=== PATIENT | male | born 1940 | race Caucasian/White ===

== ENCOUNTER 2020-02-02 10:49 | Inpatient (IN) | payer MEDICARE ==
[~2020-02-02] VITALS: Ht 175.3 cm; Wt 90.0 kg
--- NOTE | 2020-02-02 11:08 | RAD ---
AP chest x-ray HISTORY: Right-sided weakness, code stroke. FINDINGS: Borderline cardiomegaly. Mediastinum unremarkable. No pneumothorax, pulmonary opacities or pleural effusions. Mild discoid atelectasis lung bases. Bones unremarkable. IMPRESSION: No acute process. Mild bibasilar atelectasis. Electronically signed by: Krish Eldridge MD (02/02/2020 11:05 AM) [id number]
--- NOTE | 2020-02-02 11:11 | RAD ---
CT head without contrast Exposure: One or more of the following individualized dose reduction techniques were utilized for this examination: 1. Automated exposure control 2. Adjustment of the mA and/or kV according to patient size 3. Use of iterative reconstruction technique History: Code stroke. Right-sided weakness. Speech changes. FINDINGS: No intracranial hemorrhage, mass, hydrocephalus or infarction. No acute ischemic change evident. Orbits, mastoids and bones are unremarkable. IMPRESSION: No acute abnormality. FOR INTERNAL CODING PURPOSES Critical result: Findings discussed with LYN ROSE at 02/02/2020 11:05 AM. RESULT CODE: (C) Electronically signed by: Krish Eldridge MD (02/02/2020 11:08 AM) [id number]
[2020-02-02 11:19] LABS: BASO # 0.1 x10^3/uL (0.0-0.2); BASO % 1 % (0-3); EOS # 0.1 x10^3/uL (0.0-0.7); EOS % 2 % (0-3); HEMOGLOBIN 14.5 g/dL (13.0-17.5); LYMPH % 26 % (24-48); MEAN CORPUSCULAR HEMOGLOBIN 33 pg (25-35); MEAN CORPUSCULAR HGB CONC 34 g/dL (31-37); MEAN CORPUSCULAR VOLUME 98 fL (79-100); MONO # 0.6 x10^3/uL (0.0-1.1); MONO % 8 % (0-9); NEUT # 4.7 x10^3/uL (1.8-7.7); NEUT % 62 % (31-73); PLATELET COUNT 252 x10^3/uL (140-400); RED BLOOD COUNT 4.39 x10^6/uL (4.30-5.70); WHITE BLOOD COUNT 7.6 x10^3/uL (4.0-11.0)
--- NOTE | 2020-02-02 11:21 | RAD ---
CT angiography head and neck with contrast Stenosis calculations for CT, MR, and conventional angiography are based upon measurements of the distal ICA diameter in accordance with the NASCET methodology. Stenosis calculations for carotid ultrasound studies are derived from validated velocity criteria which are known to correlate with the NASCET methodology. PQRS statement: CT scans at this facility use dose reduction including either automated exposure control, iterative reconstructions, and /or weight based radiation dosing via mA and kV modification when appropriate to reduce radiation dose to as low as reasonably achievable. Technique: CT imaging head and neck with 75 mL of opaque 350 intravenous contrast with 3-D MIP reconstructions of the arteries acquired. CTA neck: Mild plaquing of the ostia the vessels from the aortic arch without stenosis. Tortuosity of the vessels at the thoracic inlet. Left vertebral artery is dominant. No plaquing, dissection, thrombus, stenosis or occlusion the vertebral arteries. Left carotid artery demonstrates partially calcified plaque at the bifurcation contributing to 10 percent stenosis. No dissection, thrombus or occlusion. Right carotid artery demonstrates partially calcified plaque at the bifurcation contributing to 40 percent stenosis at the termination of the common carotid and origin of the internal carotid artery. No dissection, thrombus or occlusion. Cervical disc osteophytes and uncovertebral spurs with spinal canal and neural foraminal stenoses. CT head findings: Mild calcified plaque cavernous carotid arteries without stenosis. No large vessel occlusion. No thrombus, significant stenosis, occlusion or aneurysm. Patent left posterior indicating artery. Patent anterior to indicating artery. Right anterior cerebral artery A1 segment is hypoplastic. IMPRESSION: 1. No large vessel occlusion. 2. Cervical carotid artery plaquing without significant stenosis. FOR INTERNAL CODING PURPOSES Critical result: Findings discussed with LYN ROSE at 02/02/2020 11:08 AM. RESULT CODE: (C) Electronically signed by: Krish Eldridge MD (02/02/2020 11:18 AM) [id number]
[2020-02-02 11:30] LABS: CREATININE 1.7 mg/dL (0.7-1.3); POTASSIUM 4.9 mmol/L (3.5-5.1)
[2020-02-02] MEDS ORDERED: ALTEPLASE IV SCH (11:30)
[2020-02-02] MEDS ORDERED: ALTEPLASE 0 MG IV SCH (11:30)
[2020-02-02] MEDS ORDERED: ALTEPLASE 8.5 MG IV ONE (11:30)
[2020-02-02] MEDS ORDERED: LABETALOL 20 MG/4 ML DISP.SYRIN. IVP PRN (11:30)
[2020-02-02] MEDS ORDERED: IV NORMAL SALINE 50ML 50 ML IV ONE ×2 (11:30)
[2020-02-02 11:34] LABS: PROTHROMBIN TIME PATIENT 14.3 SEC (11.7-14.0)
[2020-02-02 11:36] LABS: TOTAL BILIRUBIN 0.4 mg/dL (0.2-1.0); TOTAL PROTEIN 5.9 g/dL (6.4-8.2)
--- NOTE | 2020-02-02 11:56 | PDOC1 ---
History and Physical Date of Admission Date of Admission DATE: 02/02/20 TIME: 11:51 Identification/Chief Complaint Chief Complaint Garbled speech, right arm and leg weakness Source Source: Caregiver, Chart review, Patient History of Present Illness History of Present Illness Mr Hamm is an 79 yo M w/ PMHx COPD, CAD s/p x2 MIRLANDE (10+ years) on plavix, renal mass s/p RFA, chronic systolic CHF (EF 40%), HTN, BPH, and HLD who presents to the ED brought in by EMS as a code stroke activation, last known well around 1015 AM this morning. EMS reports patient was picked up at a nearby liquor store with sudden onset slurred speech and right-sided weakness- witnessed event/pt slumped to right side, not fall or hit his head. EMS reported patient had right-sided flaccidity and aphasia with left lower facial droop. Glucose within normal limits. On no anticoagulants. EKG with NSR 65 bpm, left axis deviation, QTC 465, [place] 206, first-degree AV block, left bundle branch block present, T wave inversions V4 through V6, 1, 2 and aVL, no prior EKG for comparison CXR with borderline cardiomegaly no acute abnormalities. CT head with no acute hemorrhage. CT angiogram head and neck with bilateral carotid plaques no thrombi noted. Labs significant for WBC 7.6, Hb 14.5, platelets 252, INR 1.2, PTT 28, calcium 8, NA 138, K4.9, BUN 31, CR 1.7, glucose 102. NIHSS 6 on admit with ED. Contacted by ED for admission and we discussed with neurology, no absolute contraindications to tPA, which was administered with improvement in symptoms to NIHSS of 1 upon my evaluation. Seen in ED bedside with his and [id number] (he and his are from [facility] in town visiting his son and [id number] who are the owners of a liquor store where this incident occurred.) His and [id number] note that at baseline he does have some occasional word-finding difficulty. Admitted to ICU for post-tPA care. Past Medical History Cardiovascular: CAD, CHF, HTN, Hyperlipidemia Pulmonary: COPD Renal/: Benign prostatic enlarg. Past Surgical History Past Surgical History: Cystoscopy Family History Family History: Cancer, High Cholestrol, Hypertension Social History Smoke: Quit ALCOHOL: occassional Drugs: None Current Medications Current Medications Current Medications Alteplase, Recombinant 8.5 ml @ 510 mls/hr 1X ONCE IV ; Start 02/02/20 at 11:30; Stop 02/02/20 at 11:31; Status DC Alteplase, Recombinant 76.8 ml @ 76.8 mls/hr Q1H IV ; Start 02/02/20 at 11:30; Stop 02/02/20 at 12:29 Sodium Chloride 50 ml @ 200 mls/hr 1X ONCE IV ; Start 02/02/20 at 11:30; Stop 02/02/20 at 11:44; Status DC Alteplase, Recombinant 0 ml @ 0 mls/hr Q1H IV ; Start 02/02/20 at 11:30; Stop 02/02/20 at 11:31; Status UNV Sodium Chloride 50 ml @ 0 mls/hr 1X ONCE IV ; Start 02/02/20 at 11:30; Stop 02/02/20 at 11:32; Status DC Labetalol HCl (Normodyne Iv Push) 10 mg PRN Q10MIN PRN IVP HYPERTENSION; Start 02/02/20 at 11:30 Nicardipine HCl 50 mg/Sodium Chloride 250 ml @ 25 mls/hr CONT PRN PRN IV HYPERTENSION; Start 02/02/20 at 11:30 Allergies Allergies: Coded Allergies: No Known Drug Allergies (Unverified , 02/02/20) ROS General: YES: Fatigue, Malaise; No: Chills, Night Sweats, Appetite, Other PSYCHOLOGICAL ROS: No: Anxiety, Behavioral Disorder, Concentration difficultie, Decreased libido, Depression, Disorientation, Hallucinations, Hostility, Irritablity, Memory difficulties, Mood Swings, Obsessive thoughts, Physical abuse, Sexual abuse, Sleep disturbances, Suicidal ideation, Other Eyes: No Blurry vision, No Decreased vision, No Double vision, No Dry eyes, No Excessive tearing, No Eye Pain, No Itchy Eyes, No Loss of vision, No Photophobia, No Scotomata, No Uses contacts, No Uses glasses, No Other HEENT: No: Heacaches, Visual Changes, Hearing change, Nasal congestion, Nasal discharge, Oral lesions, Sinus pain, Sore Throat, Epistaxis, Sneezing, Snoring, Tinnitus, Vertigo, Vocal changes, Other ALLERGY AND IMMUNOLOGY: No: Hives, Insect Bite Sensitivity, Itchy/Watery Eyes, Nasal Congestion, Post Nasal Drip, Seasonal Allergies, Other Hematological and Lymphatic: No: Bleeding Problems, Blood Clots, Blood Transfusions, Brusing, Night Sweats, Pallor, Swollen Lymph Nodes, Other ENDOCRINE: No: Breast Changes, Galactorrhea, Hair Pattern Changes, Hot Flashes, Malaise/lethargy, Mood Swings, Palpitations, Polydipsia/polyuria, Skin Changes, Temperature Intolerance, Unexpected Weight Changes, Other Breast: No New/Changing Breast Lumps, No Nipple changes, No Nipple discharge, No Other Respiratory: No: Cough, Hemoptysis, Orthopnea, Pleuritic Pain, Shortness of breath, SOB with excertion, Sputum Changes, Stridor, Tachypnea, Wheezing, Other Cardiovascular: No Chest Pain, No Palpitations, No Orthopnea, No Paroxysmal Noc. Dyspnea, No Edema, No Lt Headedness, No Other Gastrointestinal: No Nausea, No Vomiting, No Abdominal Pain, No Diarrhea, No Constipation, No Melena, No Hematochezia, No Other Genitourinary: No Dysuria, No Frequency, No Incontinence, No Hematuria, No Retention, No Discharge, No Urgency, No Pain, No Flank Pain, No Other, No , No , No , No , No , No , No Musculoskeletal: No Gait Disturbance, No Joint Pain, No Joint Stiffness, No Joint Swelling, No Muscle Pain, No Muscular Weakness, No Pain In:, No Swelling In:, No Other Neurological: Yes Memory Loss, Yes Speech Problems; No Behavorial Changes, No Bowel/Bladder ControlChng, No Confusion, No Dizziness, No Gait Disturbance, No Headaches, No Impaired Coord/balance, No Numbness/Tingling, No Seizures, No Tremors, No Visual Changes, No Weakness, No Other Skin: No Dry Skin, No Eczema, No Hair Changes, No Lumps, No Mole Changes, No Mottling, No Nail Changes, No Pruritus, No Rash, No Skin Lesion Changes, No Other, No Acne Physical Exam General: Alert, Oriented X3, Cooperative, No acute distress HEENT: Atraumatic, PERRLA, EOMI, Mucous membr. moist/pink Lungs: Other (Scattered wheezes) Heart: S1S2, RRR, no thrills, no rubs, no gallops, no murmurs Abdomen: Normal bowel sounds, Soft, No tenderness, No hepatosplenomegaly, No ma sses Rectal Exam: not examined Extremities: No clubbing, No cyanosis, No edema, Normal pulses, No tenderness/swelling Skin: No rashes, No breakdown, No significant lesion Neuro: Normal gait, Normal speech, Strength at 5/5 X4 ext, Normal tone, Sensation intact, Cranial nerves 3-12 NL, Reflexes 2+ Psych/Mental Status: Mental status NL, Mood NL Labs Labs Laboratory Tests Test 02/02/20 11:07 White Blood Count 7.6 x10^3/uL (4.0-11.0) Red Blood Count 4.39 x10^6/uL (4.30-5.70) Hemoglobin 14.5 g/dL (13.0-17.5) Hematocrit 43.0 % (39.0-53.0) Mean Corpuscular Volume 98 fL (79-100) Mean Corpuscular Hemoglobin 33 pg (25-35) Mean Corpuscular Hemoglobin Concent 34 g/dL (31-37) Red Cell Distribution Width 14.0 % (11.5-14.5) Platelet Count 252 x10^3/uL (140-400) Neutrophils (%) (Auto) 62 % (31-73) Lymphocytes (%) (Auto) 26 % (24-48) Monocytes (%) (Auto) 8 % (0-9) Eosinophils (%) (Auto) 2 % (0-3) Basophils (%) (Auto) 1 % (0-3) Neutrophils # (Auto) 4.7 x10^3/uL (1.8-7.7) Lymphocytes # (Auto) 2.0 x10^3/uL (1.0-4.8) Monocytes # (Auto) 0.6 x10^3/uL (0.0-1.1) Eosinophils # (Auto) 0.1 x10^3/uL (0.0-0.7) Basophils # (Auto) 0.1 x10^3/uL (0.0-0.2) Prothrombin Time 14.3 SEC (11.7-14.0) Prothromb Time International Ratio 1.2 (0.8-1.1) Activated Partial Thromboplast Time 28 SEC (24-38) Sodium Level 138 mmol/L (136-145) Potassium Level 4.9 mmol/L (3.5-5.1) Chloride Level 106 mmol/L (98-107) Carbon Dioxide Level 21 mmol/L (21-32) Anion Gap 11 (6-14) Blood Urea Nitrogen 31 mg/dL (8-26) Creatinine 1.7 mg/dL (0.7-1.3) Estimated GFR (Cockcroft-Gault) 39.0 BUN/Creatinine Ratio 18 (6-20) Glucose Level 102 mg/dL (70-99) Calcium Level 8.0 mg/dL (8.5-10.1) Total Bilirubin 0.4 mg/dL (0.2-1.0) Aspartate Amino Transf (AST/SGOT) 12 U/L (15-37) Alanine Aminotransferase (ALT/SGPT) 14 U/L (16-63) Alkaline Phosphatase 46 U/L (46-116) Troponin I Quantitative < 0.017 ng/mL (0.000-0.055) Total Protein 5.9 g/dL (6.4-8.2) Albumin 3.0 g/dL (3.4-5.0) Albumin/Globulin Ratio 1.0 (1.0-1.7) Ethyl Alcohol Level < 10 mg/dL (0-10) Laboratory Tests Test 02/02/20 11:07 White Blood Count 7.6 x10^3/uL (4.0-11.0) Red Blood Count 4.39 x10^6/uL (4.30-5.70) Hemoglobin 14.5 g/dL (13.0-17.5) Hematocrit 43.0 % (39.0-53.0) Mean Corpuscular Volume 98 fL (79-100) Mean Corpuscular Hemoglobin 33 pg (25-35) Mean Corpuscular Hemoglobin Concent 34 g/dL (31-37) Red Cell Distribution Width 14.0 % (11.5-14.5) Platelet Count 252 x10^3/uL (140-400) Neutrophils (%) (Auto) 62 % (31-73) Lymphocytes (%) (Auto) 26 % (24-48) Monocytes (%) (Auto) 8 % (0-9) Eosinophils (%) (Auto) 2 % (0-3) Basophils (%) (Auto) 1 % (0-3) Neutrophils # (Auto) 4.7 x10^3/uL (1.8-7.7) Lymphocytes # (Auto) 2.0 x10^3/uL (1.0-4.8) Monocytes # (Auto) 0.6 x10^3/uL (0.0-1.1) Eosinophils # (Auto) 0.1 x10^3/uL (0.0-0.7) Basophils # (Auto) 0.1 x10^3/uL (0.0-0.2) Prothrombin Time 14.3 SEC (11.7-14.0) Prothromb Time International Ratio 1.2 (0.8-1.1) Activated Partial Thromboplast Time 28 SEC (24-38) Sodium Level 138 mmol/L (136-145) Potassium Level 4.9 mmol/L (3.5-5.1) Chloride Level 106 mmol/L (98-107) Carbon Dioxide Level 21 mmol/L (21-32) Anion Gap 11 (6-14) Blood Urea Nitrogen 31 mg/dL (8-26) Creatinine 1.7 mg/dL (0.7-1.3) Estimated GFR (Cockcroft-Gault) 39.0 BUN/Creatinine Ratio 18 (6-20) Glucose Level 102 mg/dL (70-99) Calcium Level 8.0 mg/dL (8.5-10.1) Total Bilirubin 0.4 mg/dL (0.2-1.0) Aspartate Amino Transf (AST/SGOT) 12 U/L (15-37) Alanine Aminotransferase (ALT/SGPT) 14 U/L (16-63) Alkaline Phosphatase 46 U/L (46-116) Troponin I Quantitative < 0.017 ng/mL (0.000-0.055) Total Protein 5.9 g/dL (6.4-8.2) Albumin 3.0 g/dL (3.4-5.0) Albumin/Globulin Ratio 1.0 (1.0-1.7) Ethyl Alcohol Level < 10 mg/dL (0-10) Images Images CXR: Borderline cardiomegaly. Mediastinum unremarkable. No pneumothorax, pulmonary opacities or pleural effusions. Mild discoid atelectasis lung bases. Bones unremarkable. IMPRESSION: No acute process. Mild bibasilar atelectasis. CT Head: No intracranial hemorrhage, mass, hydrocephalus or infarction. No acute ischemic change evident. Orbits, mastoids and bones are unremarkable. IMPRESSION: No acute abnormality CTA neck: Mild plaquing of the ostia the vessels from the aortic arch without stenosis. Tortuosity of the vessels at the thoracic inlet. Left vertebral artery is dominant. No plaquing, dissection, thrombus, stenosis or occlusion the vertebral arteries. Left carotid artery demonstrates partially calcified plaque at the bifurcation contributing to 10 percent stenosis. No dissection, thrombus or occlusion. Right carotid artery demonstrates partially calcified plaque at the bifurcation contributing to 40 percent stenosis at the termination of the common carotid and origin of the internal carotid artery. No dissection, thrombus or occlusion. Cervical disc osteophytes and uncovertebral spurs with spinal canal and neural foraminal stenoses. CT head findings: Mild calcified plaque cavernous carotid arteries without stenosis. No large vessel occlusion. No thrombus, significant stenosis, occlusion or aneurysm. Patent left posterior indicating artery. Patent anterior to indicating artery. Right anterior cerebral artery A1 segment is hypoplastic. IMPRESSION: 1. No large vessel occlusion. 2. Cervical carotid artery plaquing without significant stenosis. VTE Prophylaxis Ordered VTE Prophylaxis Devices: Yes VTE Pharmacological Prophylaxi: Yes Assessment/Plan Assessment/Plan A/P: Aphasia (Broca's) - has baseline some word finding difficulty, but vastly improved since initial evaluation. Likely prevented early CVA. Neuro consulted Right sided weakness - Resolved s/p tPA CAD s/p x2 MIRLANDE (10+ years) - on plavix. Follows in [place], [place]. Hold antiplatelets after tPA administration. Will reconcile his other meds Chronic systolic CHF (EF 40%) - stable currently, seems euvolemic, will obtain [facility] records HTN - PRN nicardipine/labetalol for SBP < 180mmHg HLD - statin BPH - flomax COPD - prn albuterol Renal mass s/p RFA - will f/u with records SUSIE - baseline Cr unknown, no significant renal disease FEN - NPO pending swallow evaluation PPX - TPA given CODE - DNR/DNI Dispo - inpatient ICU CC time 49 minutes Justifications for Admission Other Justification SCOTT LEACH MD Feb 02, 2020 11:56
[2020-02-02] MEDS ORDERED: IOHEXOL 350 MG/ML 100 ML VIAL. IV ONE (12:30)
[2020-02-02] MEDS ORDERED: CONTRAST GIVEN. MC PRN (12:30)
--- NOTE | 2020-02-02 13:15 | PHYS DOC ---
General Adult EDM: Chief Complaint: NEURO SYMPTOMS/DEFICITS HPI: HPI: 79 yo M PMH CAD on plavix, HTN and HLD, presents to the ED brought in by EMS as a code stroke activation, last known well around 10:15 AM this morning. EMS reports patient was picked up at a nearby grocery store with sudden onset slurred speech and right-sided weakness- witnessed event/pt slumped to right side, not fall or hit his head. EMS reported patient had right-sided flaccidity and aphasia with left lower facial droop. Glucose within normal limits. On no anticoagulants. Review of Systems: Review of Systems: ROS: Unable to assess due to medical condition Heart Score: Risk Factors: Risk Factors: DM, Current or recent (<one month) smoker, HTN, HLP, family history of CAD, obesity. Risk Scores: Score 0 - 3: 2.5% MACE over next 6 weeks - Discharge Home Score 4 - 6: 20.3% MACE over next 6 weeks - Admit for Clinical Observation Score 7 - 10: 72.7% MACE over next 6 weeks - Early Invasive Strategies Current Medications: Current Medications Medications (Trade) Dose Ordered Sig/Ivana Start Time Stop Time Status Last Admin Dose Admin Alteplase, Recombinant 0 ml @ 0 mls/hr Q1H 02/02/20 11:30 02/02/20 11:31 UNV Info (CONTRAST GIVEN -- Rx MONITORING) 1 each PRN DAILY PRN 02/02/20 12:30 02/04/20 12:29 Iohexol (Omnipaque 350 Mg/ml) 75 ml 1X ONCE 02/02/20 12:30 02/02/20 12:31 DC Labetalol HCl (Normodyne Iv Push) 10 mg PRN Q10MIN PRN 02/02/20 11:30 Nicardipine HCl 50 mg/Sodium Chloride 250 ml @ 25 mls/hr CONT PRN PRN 02/02/20 11:30 Sodium Chloride 50 ml @ 0 mls/hr 1X ONCE 02/02/20 11:30 02/02/20 11:32 DC Allergies: Allergies: Allergies Coded Allergies Type Severity Reaction Last Updated Verified No Known Drug Allergies 02/02/20 No Physical Exam: PE: Constitutional: Well developed, well nourished, HENT: Normocephalic, atraumatic, Eyes: PERRLA, EOMI, conjunctiva normal, no discharge. Neck: Normal range of motion, no tenderness, Cardiovascular:Heart rate regular rhythm, no murmur Lungs & Thorax: Bilateral breath sounds clear to auscultation Abdomen: Bowel sounds normal, obese, 10cm ventral hernia easily reduced, soft, no tenderness, no masses, no pulsatile masses. Skin: Warm, dry, no erythema, no rash. Extremities: No tenderness, no edema. Neurologic: NIHSS6, Alert, unable to say 's name, is trying to write it, stated "my girl," but intermittently with slurred/incomprehensible and inappropriate words, cannot identify a pen or mask) Psychologic: Affect normal, judgement normal, mood normal. [] 1a. Level of Consciousness: 0 1b. LOC Questions:2 1c. LOC Commands: 0 2. Best Gaze: 0 3. Visual: 0 4. Facial Palsy: 1 5. Motor Arm: 0 5b. Right Arm :0 6. Motor Le 6a. Left Le 6b. Right Le 7. Limb Ataxia: 0 8. Sensory: 0 9. Best Language: 2 10. Dysarthria: 1 11. Extinction and Inattention (formerly Neglect): 0 Current Patient Data: Labs: Laboratory Tests Test 02/02/20 11:07 White Blood Count 7.6 x10^3/uL (4.0-11.0) Red Blood Count 4.39 x10^6/uL (4.30-5.70) Hemoglobin 14.5 g/dL (13.0-17.5) Hematocrit 43.0 % (39.0-53.0) Mean Corpuscular Volume 98 fL (79-100) Mean Corpuscular Hemoglobin 33 pg (25-35) Mean Corpuscular Hemoglobin Concent 34 g/dL (31-37) Red Cell Distribution Width 14.0 % (11.5-14.5) Platelet Count 252 x10^3/uL (140-400) Neutrophils (%) (Auto) 62 % (31-73) Lymphocytes (%) (Auto) 26 % (24-48) Monocytes (%) (Auto) 8 % (0-9) Eosinophils (%) (Auto) 2 % (0-3) Basophils (%) (Auto) 1 % (0-3) Neutrophils # (Auto) 4.7 x10^3/uL (1.8-7.7) Lymphocytes # (Auto) 2.0 x10^3/uL (1.0-4.8) Monocytes # (Auto) 0.6 x10^3/uL (0.0-1.1) Eosinophils # (Auto) 0.1 x10^3/uL (0.0-0.7) Basophils # (Auto) 0.1 x10^3/uL (0.0-0.2) Prothrombin Time 14.3 SEC (11.7-14.0) H Prothrombin Time INR 1.2 (0.8-1.1) H Activated Partial Thromboplast Time 28 SEC (24-38) Sodium Level 138 mmol/L (136-145) Potassium Level 4.9 mmol/L (3.5-5.1) Chloride Level 106 mmol/L (98-107) Carbon Dioxide Level 21 mmol/L (21-32) Anion Gap 11 (6-14) Blood Urea Nitrogen 31 mg/dL (8-26) H Creatinine 1.7 mg/dL (0.7-1.3) H Estimated GFR (Cockcroft-Gault) 39.0 BUN/Creatinine Ratio 18 (6-20) Glucose Level 102 mg/dL (70-99) H Calcium Level 8.0 mg/dL (8.5-10.1) L Total Bilirubin 0.4 mg/dL (0.2-1.0) Aspartate Amino Transferase (AST) 12 U/L (15-37) L Alanine Aminotransferase (ALT) 14 U/L (16-63) L Alkaline Phosphatase 46 U/L (46-116) Troponin I Quantitative < 0.017 ng/mL (0.000-0.055) Total Protein 5.9 g/dL (6.4-8.2) L Albumin 3.0 g/dL (3.4-5.0) L Albumin/Globulin Ratio 1.0 (1.0-1.7) Ethyl Alcohol Level < 10 mg/dL (0-10) Laboratory Tests 02/02/20 11:07 Laboratory Tests 02/02/20 11:07 EKG: EKG: Sinus rhythm at 65 bpm, left axis deviation, QTC 465, IL 206, first-degree AV block, left bundle branch block present, T wave inversions V4 through V6, 1, 2 and aVL, no prior EKG for comparison Radiology/Procedures: Radiology/Procedures: IMAGING REPORT Signed PATIENT: CARLOTA BALTAZAR ACCOUNT: [id number] : 1940 LOCATION: ER AGE: 79 SEX: M EXAM STATUS: PRE ER ORD. PHYSICIAN: LEATHA ROSE DO REASON: right weakness and speech changes PROCEDURE: CT CODE STROKE HEAD WO CT head without contrast Exposure: One or more of the following individualized dose reduction techniques were utilized for this examination: 1. Automated exposure control 2. Adjustment of the mA and/or kV according to patient size 3. Use of iterative reconstruction technique History: Code stroke. Right-sided weakness. Speech changes. FINDINGS: No intracranial hemorrhage, mass, hydrocephalus or infarction. No acute ischemic change evident. Orbits, mastoids and bones are unremarkable. IMPRESSION: No acute abnormality. FOR INTERNAL CODING PURPOSES Critical result: Findings discussed with LEATHA ROSE at 02/02/2020 11:05 AM. RESULT CODE: (C) Electronically signed by: Antonio Eldridge MD (02/02/2020 11:08 AM) [id number] DICTATED and SIGNED BY: ANTONIO ELDRIDGE MD DATE: 02/02/201107 IMAGING REPORT Signed PATIENT: CARLOTA BALTAZAR ACCOUNT: [id number] : 1940 LOCATION: ER AGE: 79 SEX: M EXAM STATUS: REG ER ORD. PHYSICIAN: LEATHA ROSE DO REASON: right weakness and speech changes IV OMNI 350 75 MLS PROCEDURE: CTA HEAD/NECK - CODE STROKE CT angiography head and neck with contrast Stenosis calculations for CT, MR, and conventional angiography are based upon measurements of the distal ICA diameter in accordance with the NASCET methodology. Stenosis calculations for carotid ultrasound studies are derived from validated velocity criteria which are known to correlate with the NASCET methodology. PQRS statement: CT scans at this facility use dose reduction including either automated exposure control, iterative reconstructions, and /or weight based radiation dosing via mA and kV modification when appropriate to reduce radiation dose to as low as reasonably achievable. Technique: CT imaging head and neck with 75 mL of opaque 350 intravenous contrast with 3-D MIP reconstructions of the arteries acquired. CTA neck: Mild plaquing of the ostia the vessels from the aortic arch without stenosis. Tortuosity of the vessels at the thoracic inlet. Left vertebral artery is dominant. No plaquing, dissection, thrombus, stenosis or occlusion the vertebral arteries. Left carotid artery demonstrates partially calcified plaque at the bifurcation contributing to 10 percent stenosis. No dissection, thrombus or occlusion. Right carotid artery demonstrates partially calcified plaque at the bifurcation contributing to 40 percent stenosis at the termination of the common carotid and origin of the internal carotid artery. No dissection, thrombus or occlusion. Cervical disc osteophytes and uncovertebral spurs with spinal canal and neural foraminal stenoses. CT head findings: Mild calcified plaque cavernous carotid arteries without stenosis. No large vessel occlusion. No thrombus, significant stenosis, occlusion or aneurysm. Patent left posterior indicating artery. Patent anterior to indicating artery. Right anterior cerebral artery A1 segment is hypoplastic. IMPRESSION: 1. No large vessel occlusion. 2. Cervical carotid artery plaquing without significant stenosis. FOR INTERNAL CODING PURPOSES Critical result: Findings discussed with LEATHA ROSE at 02/02/2020 11:08 AM. RESULT CODE: (C) Electronically signed by: Antonio Eldridge MD (02/02/2020 11:18 AM) [id number] DICTATED and SIGNED BY: ANTONIO ELDRIDGE MD DATE: 02/02/20 1118 IMAGING REPORT Signed PATIENT: CARLOTA BALTAZAR ACCOUNT: [id number] : 1940 LOCATION: ER AGE: 79 SEX: M EXAM STATUS: PRE ER ORD. PHYSICIAN: LEATHA ROSE DO REASON: roight weak,CODE STROKE PROCEDURE: PORTABLE CHEST 1V AP chest x-ray HISTORY: Right-sided weakness, code stroke. FINDINGS: Borderline cardiomegaly. Mediastinum unremarkable. No pneumothorax, pulmonary opacities or pleural effusions. Mild discoid atelectasis lung bases. Bones unremarkable. IMPRESSION: No acute process. Mild bibasilar atelectasis. Electronically signed by: Antonio Eldridge MD (02/02/2020 11:05 AM) [id number] DICTATED and SIGNED BY: ANTONIO ELDRIDGE MD DATE: 02/02/205 Course & Med Decision Making: Course & Med Decision Making Pertinent Labs and Imaging studies reviewed. (See chart for details) Concern for ischemic CVA/sudden onset broca's aphasia and dysarthria. CT of the head with no hemorrhagic stroke. CTA of the head and neck with no large vessel occlusion. Patient within TPA timeframe and has no absolute contraindications. Consent eventually ( initially not comfortable and there was difficulty getting ahold of pts' son) obtained from patient's at bedside and patient's son Chidi/daughter Luly via speaker phone. Thorough explanation of TPA risks and benefits. Also d/w neurology, Dr. Nagy, who agrees with plan/management. On re-evaluation after tpa given, almost near-resolution of aphasia, some mild dysarthria, NIHSS1. Pt admitted to ICU. I have spoken with the patient and/or caregivers. I have explained the patient's condition, diagnosis and treatment plan based on the information available to me at this time. I have answered the patient's and/or caregivers questions and answered any concerns. The patient and/or caregivers have as good an understanding of the patient's diagnosis, condition and treatment plan as can be expected at this point. The patient has been stabilized within the ca pability of the emergency department. The patient will be transported for further care and management or will be moved to an observation or inpatient service. I have communicated with the staff or medical practitioner taking over this patient's care. Critical Care: Authorized and Performed by: Leatha Rose DO Total critical care time: approximately 90 minutes Due to a high probability of clinically significant, life threatening deterioration, the patient required my highest level of preparedness to intervene emergently and I personally spent this critical care time directly and personally managing the patient. This critical care time included obtaining a history; examining the patient; pulse oximetry; ventilator management if necessary; ordering and review of studies; arranging urgent treatment with development of a management plan; evaluation of patient's response to treatment; frequent reassessment; discussion with patient/family; and, discussions with other providers. This critical care time was performed to assess and manage the high probability of imminent, life-threatening deterioration that could result in multi-organ failure. It was exclusive of separately billable procedures and treating other patients and teaching time. Please see MDM section and the rest of the note for further information on patient assessment and treatment. Dragon Disclaimer: Dragon Disclaimer: This electronic medical record was generated, in whole or in part, using a voice recognition dictation system. Departure Departure Impression: Primary Impression: CVA (cerebral vascular accident) Additional Impression: Broca's aphasia Disposition: 09 ADMITTED INPT THIS HOSP Admitting Physician: CHERELLE (Dr. Killian) Condition: CRITICAL Referrals: UNKNOWN PCP NAME (PCP) LEATHA ROSE DO Feb 02, 2020 13:15
[2020-02-02 14:07] LABS: BARBITURATES NEG (NEG); BENZODIAZEPINES NEG (NEG); CANNABINOIDS NEG (NEG); COCAINE NEG (NEG); METHADONE NEG (NEG); OPIATES NEG (NEG); PHENCYCLIDINE NEG (NEG)
[2020-02-02 14:12] LABS: AMPHETAMINE/METHAMPHETAMINE NEG (NEG)
[2020-02-02] MEDS ORDERED: ALBUTEROL SULFATE 2.5 MG/3 ML NEBU. NEB PRN (15:45)
--- NOTE | 2020-02-02 17:28 | RAD ---
Clinical Indications: Cerebrovascular accident. Exam : Carotid Duplex with Grayscale Ultrasound and Spectral and Color Doppler Analysis: PQRS Compliance Statement - Stenosis calculations for CT, MR and conventional angiography are based upon measurement of the distal ICA diameter in accordance with the NASCET methodology. Stenosis calculations for carotid ultrasound studies are derived from validated velocity criteria which are known to correlate with the NASCET methodology. Comparison study: None available. Findings: The common, internal and external carotid arteries were examined by grayscale, color and spectral Doppler ultrasound. Moderate atherosclerotic calcifications identified in the bilateral carotid bulbs and the proximal internal carotid arteries. Flow in both vertebral arteries was antegrade and normal. The following are the velocities and ratios in the carotid arteries on both sides: RIGHT ICA PV: 63cm/sec RIGHT CCA PV: 77cm/sec RIGHT ICA ED: 19cm/sec RIGHT IC/CCPV: 0.9 RIGHT VERTEBRAL: antegrade flow RIGHT % STENOSIS: Less than 50 percent LEFT ICA PV: 71cm/sec LEFT CCA PV: 93cm/sec LEFT ICA ED: 17cm/sec LEFT IC/CCPV: 0.7 LEFT VERTEBRAL: antegrade flow LEFT % STENOSIS: Less than 50 percent <50% ICA Stenosis: PSV < 125cm/s (EDV < 40cm/s; SVR < 2.0) 50-69% ICA Stenosis: PSV < 125-229cm/s (EDV 40-99cm/s; SVR 2.0-3.9) >70% ICA Stenosis: PSV > 230cm/s (EDV >100cm/s; SVR >4.0) Impression: No evidence of hemodynamically significant stenosis. Electronically signed by: Bakari Michael MD (02/02/2020 5:26 PM) [id number]
[2020-02-02] MEDS ORDERED: SIMV20TA18 PO (17:33)
[2020-02-02] MEDS ORDERED: CARV6.2511 PO (17:33)
[2020-02-02] MEDS ORDERED: ONDANSETRON PF 4 MG/2 ML VIAL. IV PRN (18:45)
[2020-02-02] MEDS ORDERED: ACETAMINOPHEN 650 MG SUPP.RECT. PR PRN (18:45)
[2020-02-02] MEDS ORDERED: BISACODYL 10 MG SUPP.RECT. PR PRN (18:45)
--- NOTE | 2020-02-02 19:35 | PDOC2 ---
CONSULT Date of Consult Date of Consult DATE: 02/02/20 TIME: 19:33 Reason for Consult Reason for Consult: code CVA Identification/Chief Complaint Chief Complaint right side weakness History of Present Illness Reason for Visit: This patient is 79-year-old man with past medical history of multiple medical problems patient was brought into hospital as stroke activation. Patient had acute onset of symptoms at 10:15 patient was having numbness on his right side of the body. Patient was having right-sided weakness. Patient was having difficulty with gait balance. Patient had difficulty speaking. Patient denied any complaint of headache nausea or vomiting chest pain shortness of breath. Patient was within the window for IV t-PA. Patient had stroke scale 6 on presentation The scan done brain did not show any evidence of acute intracranial etiology no evidence of acute hemorrhage or mass. Changes noted for chronic small vessel ischemic disease. Past Medical History Cardiovascular: CAD, CHF, HTN, Hyperlipidemia Pulmonary: COPD Renal/: Benign prostatic enlarg. Past Surgical History Past Surgical History: Cystoscopy Family History Family History: Cancer, High Cholestrol, Hypertension Social History Quit ALCOHOL: occassional Drugs: None Current Problem List Problem List Problems Medical Problems: (1) Broca's aphasia Status: Acute (2) CVA (cerebral vascular accident) Status: Acute Current Medications Current Medications Current Medications Alteplase, Recombinant 8.5 ml @ 510 mls/hr 1X ONCE IV Last administered on 02/02/20at 11:51; Start 02/02/20 at 11:30; Stop 02/02/20 at 11:31; Status DC Alteplase, Recombinant 76.8 ml @ 76.8 mls/hr Q1H IV Last administered on 02/02/20at 11:50; Start 02/02/20 at 11:30; Stop 02/02/20 at 12:29; Status DC Sodium Chloride 50 ml @ 200 mls/hr 1X ONCE IV Last administered on 02/02/20at 11:52; Start 02/02/20 at 11:30; Stop 02/02/20 at 11:44; Status DC Alteplase, Recombinant 0 ml @ 0 mls/hr Q1H IV ; Start 02/02/20 at 11:30; Stop 02/02/20 at 11:31; Status UNV Sodium Chloride 50 ml @ 0 mls/hr 1X ONCE IV ; Start 02/02/20 at 11:30; Stop 02/02/20 at 11:32; Status DC Labetalol HCl (Normodyne Iv Push) 10 mg PRN Q10MIN PRN IVP HYPERTENSION; Start 02/02/20 at 11:30 Nicardipine HCl 50 mg/Sodium Chloride 250 ml @ 25 mls/hr CONT PRN PRN IV HYPERTENSION; Start 02/02/20 at 11:30 Iohexol (Omnipaque 350 Mg/ml) 75 ml 1X ONCE IV Last administered on 02/02/20at 12:30; Start 02/02/20 at 12:30; Stop 02/02/20 at 12:31; Status DC Info (CONTRAST GIVEN -- Rx MONITORING) 1 each PRN DAILY PRN MC SEE COMMENTS; Start 02/02/20 at 12:30; Stop 02/04/20 at 12:29 Albuterol Sulfate (Ventolin Neb Soln) 2.5 mg PRN Q4HRS PRN NEB SHORTNESS OF BREATH; Start 02/02/20 at 15:45 Ondansetron HCl (Zofran) 4 mg PRN Q4HRS PRN IV NAUSEA/VOMITING; Start 02/02/20 at 18:45 Acetaminophen (Tylenol Supp) 650 mg PRN Q4HRS PRN MI TEMP OVER 100.4F OR MILD PAIN; Start 02/02/20 at 18:45 Bisacodyl (Dulcolax Supp) 10 mg PRN DAILY PRN MI CONSTIPATION; Start 02/02/20 at 18:45 Active Scripts Active Reported Carvedilol (Carvedilol) 6.25 Mg Tablet 6.25 Mg PO BIDWMEALS Simvastatin 20 Mg Tablet 1 Tab PO QHS Allergies Allergies: Coded Allergies: No Known Drug Allergies (Unverified , 02/02/20) Physical Exam Physical Exam General no acute distress. HEENT: Normocephalic and atraumatic. NECK: Supple without bruit Respiratory: Clear to auscultation bilaterally Heart: Regular rate and rhythm, S1S2 normal NEUROLOGIC: Mental status Alert oriented. Cranial nerve equally reactive pupils, and intact extraocular movements. No facial asymmetry. dysarthria Palate elevates and tongue protrudes in midline. Reflexes are 1-2 with flexor plantar responses. Coordination no dysmetria Strength able to move all exts equally. Sensory exam is intact for light touch and pinprick more on left compared to right side. Gait in bed. A 10-point review of systems was obtained. Other than the history of present illness the remainder of the review of systems is negative. Vitals VITALS Vital Signs Date Time Temp Pulse Resp B/P (MAP) Pulse Ox O2 Delivery O2 Flow Rate FiO2 02/02/20 18:30 73 18 136/64 (88) 97 Room Air 02/02/20 10:49 97.5 97.5 Labs Labs Laboratory Tests Test 02/02/20 11:07 02/02/20 13:40 White Blood Count 7.6 x10^3/uL (4.0-11.0) Red Blood Count 4.39 x10^6/uL (4.30-5.70) Hemoglobin 14.5 g/dL (13.0-17.5) Hematocrit 43.0 % (39.0-53.0) Mean Corpuscular Volume 98 fL (79-100) Mean Corpuscular Hemoglobin 33 pg (25-35) Mean Corpuscular Hemoglobin Concent 34 g/dL (31-37) Red Cell Distribution Width 14.0 % (11.5-14.5) Platelet Count 252 x10^3/uL (140-400) Neutrophils (%) (Auto) 62 % (31-73) Lymphocytes (%) (Auto) 26 % (24-48) Monocytes (%) (Auto) 8 % (0-9) Eosinophils (%) (Auto) 2 % (0-3) Basophils (%) (Auto) 1 % (0-3) Neutrophils # (Auto) 4.7 x10^3/uL (1.8-7.7) Lymphocytes # (Auto) 2.0 x10^3/uL (1.0-4.8) Monocytes # (Auto) 0.6 x10^3/uL (0.0-1.1) Eosinophils # (Auto) 0.1 x10^3/uL (0.0-0.7) Basophils # (Auto) 0.1 x10^3/uL (0.0-0.2) Prothrombin Time 14.3 SEC (11.7-14.0) Prothromb Time International Ratio 1.2 (0.8-1.1) Activated Partial Thromboplast Time 28 SEC (24-38) Sodium Level 138 mmol/L (136-145) Potassium Level 4.9 mmol/L (3.5-5.1) Chloride Level 106 mmol/L (98-107) Carbon Dioxide Level 21 mmol/L (21-32) Anion Gap 11 (6-14) Blood Urea Nitrogen 31 mg/dL (8-26) Creatinine 1.7 mg/dL (0.7-1.3) Estimated GFR (Cockcroft-Gault) 39.0 BUN/Creatinine Ratio 18 (6-20) Glucose Level 102 mg/dL (70-99) Calcium Level 8.0 mg/dL (8.5-10.1) Magnesium Level 2.5 mg/dL (1.8-2.4) Total Bilirubin 0.4 mg/dL (0.2-1.0) Aspartate Amino Transf (AST/SGOT) 12 U/L (15-37) Alanine Aminotransferase (ALT/SGPT) 14 U/L (16-63) Alkaline Phosphatase 46 U/L (46-116) Troponin I Quantitative < 0.017 ng/mL (0.000-0.055) HO-Lpa-I-Type Natriuretic Peptide 3833 pg/mL (0-449) Total Protein 5.9 g/dL (6.4-8.2) Albumin 3.0 g/dL (3.4-5.0) Albumin/Globulin Ratio 1.0 (1.0-1.7) Ethyl Alcohol Level < 10 mg/dL (0-10) Urine Opiates Screen Neg (NEG) Urine Methadone Screen Neg (NEG) Urine Barbiturates Neg (NEG) Urine Phencyclidine Screen Neg (NEG) Urine Amphetamine/Methamphetamine Neg (NEG) Urine Benzodiazepines Screen Neg (NEG) Urine Cocaine Screen Neg (NEG) Urine Cannabinoids Screen Neg (NEG) Urine Ethyl Alcohol Neg (NEG) Laboratory Tests Test 02/02/20 11:07 02/02/20 13:40 White Blood Count 7.6 x10^3/uL (4.0-11.0) Red Blood Count 4.39 x10^6/uL (4.30-5.70) Hemoglobin 14.5 g/dL (13.0-17.5) Hematocrit 43.0 % (39.0-53.0) Mean Corpuscular Volume 98 fL (79-100) Mean Corpuscular Hemoglobin 33 pg (25-35) Mean Corpuscular Hemoglobin Concent 34 g/dL (31-37) Red Cell Distribution Width 14.0 % (11.5-14.5) Platelet Count 252 x10^3/uL (140-400) Neutrophils (%) (Auto) 62 % (31-73) Lymphocytes (%) (Auto) 26 % (24-48) Monocytes (%) (Auto) 8 % (0-9) Eosinophils (%) (Auto) 2 % (0-3) Basophils (%) (Auto) 1 % (0-3) Neutrophils # (Auto) 4.7 x10^3/uL (1.8-7.7) Lymphocytes # (Auto) 2.0 x10^3/uL (1.0-4.8) Monocytes # (Auto) 0.6 x10^3/uL (0.0-1.1) Eosinophils # (Auto) 0.1 x10^3/uL (0.0-0.7) Basophils # (Auto) 0.1 x10^3/uL (0.0-0.2) Prothrombin Time 14.3 SEC (11.7-14.0) Prothromb Time International Ratio 1.2 (0.8-1.1) Activated Partial Thromboplast Time 28 SEC (24-38) Sodium Level 138 mmol/L (136-145) Potassium Level 4.9 mmol/L (3.5-5.1) Chloride Level 106 mmol/L (98-107) Carbon Dioxide Level 21 mmol/L (21-32) Anion Gap 11 (6-14) Blood Urea Nitrogen 31 mg/dL (8-26) Creatinine 1.7 mg/dL (0.7-1.3) Estimated GFR (Cockcroft-Gault) 39.0 BUN/Creatinine Ratio 18 (6-20) Glucose Level 102 mg/dL (70-99) Calcium Level 8.0 mg/dL (8.5-10.1) Magnesium Level 2.5 mg/dL (1.8-2.4) Total Bilirubin 0.4 mg/dL (0.2-1.0) Aspartate Amino Transf (AST/SGOT) 12 U/L (15-37) Alanine Aminotransferase (ALT/SGPT) 14 U/L (16-63) Alkaline Phosphatase 46 U/L (46-116) Troponin I Quantitative < 0.017 ng/mL (0.000-0.055) PO-Ehv-D-Type Natriuretic Peptide 3833 pg/mL (0-449) Total Protein 5.9 g/dL (6.4-8.2) Albumin 3.0 g/dL (3.4-5.0) Albumin/Globulin Ratio 1.0 (1.0-1.7) Ethyl Alcohol Level < 10 mg/dL (0-10) Urine Opiates Screen Neg (NEG) Urine Methadone Screen Neg (NEG) Urine Barbiturates Neg (NEG) Urine Phencyclidine Screen Neg (NEG) Urine Amphetamine/Methamphetamine Neg (NEG) Urine Benzodiazepines Screen Neg (NEG) Urine Cocaine Screen Neg (NEG) Urine Cannabinoids Screen Neg (NEG) Urine Ethyl Alcohol Neg (NEG) Assessment/Plan Assessment/Plan This patient is 79-year-old man with past medical history of multiple medical problems patient was brought into hospital as stroke activation. Patient had acute onset of symptoms at 10:15 patient was having numbness on his right side of the body. Patient was having right-sided weakness. Patient was having difficulty with gait balance. Patient had difficulty speaking. Patient denied any complaint of headache nausea or vomiting chest pain shortness of breath. Patient was within the window for IV t-PA. Patient had stroke scale 6 on presentation The scan done brain did not show any evidence of acute intracranial etiology no evidence of acute hemorrhage or mass. Changes noted for chronic small vessel ischemic disease. Patient was within the window for IV t-PA. Patient received IV t-PA. Patient had improvement in symptoms. Patient had a CTA head and neck done did not show any evidence of large vessel occlusion. Patient is being admitted to ICU for further workup, close monitoring. Patient was started on statin. Check lipid profile. PT OT speech evaluation. Check 2-D echo. MRI brain Continue medical management. Plan discussed at length with patient, patient's family at bedside TYSON THOMASON MD Feb 02, 2020 19:35
[2020-02-02 21:15] VITALS: BP 135/65
[2020-02-02 22:00] VITALS: BP 104/51
[2020-02-02 23:06] VITALS: BP 111/56
[2020-02-03] VITALS (10 sets, daily range): BP systolic 96–152; BP diastolic 48–66
[2020-02-03 05:26] LABS: BASO # 0.1 x10^3/uL (0.0-0.2); BASO % 1 % (0-3); EOS # 0.1 x10^3/uL (0.0-0.7); EOS % 2 % (0-3); HEMATOCRIT 40.7 % (39.0-53.0); HEMOGLOBIN 13.6 g/dL (13.0-17.5); LYMPH # 1.8 x10^3/uL (1.0-4.8); LYMPH % 25 % (24-48); MEAN CORPUSCULAR HEMOGLOBIN 33 pg (25-35); MEAN CORPUSCULAR HGB CONC 34 g/dL (31-37); MEAN CORPUSCULAR VOLUME 98 fL (79-100); MONO # 0.7 x10^3/uL (0.0-1.1); MONO % 10 % (0-9); NEUT # 4.4 x10^3/uL (1.8-7.7); NEUT % 62 % (31-73); PLATELET COUNT 224 x10^3/uL (140-400); RED BLOOD COUNT 4.16 x10^6/uL (4.30-5.70); RED CELL DISTRIBUTION WIDTH 13.6 % (11.5-14.5); WHITE BLOOD COUNT 7.1 x10^3/uL (4.0-11.0)
[2020-02-03 05:56] LABS: PROTHROMBIN TIME PATIENT 15.9 SEC (11.7-14.0)
[2020-02-03 06:02] LABS: ALBUMIN 2.9 g/dL (3.4-5.0); ALBUMIN/GLOBULIN RATIO 1.2 (1.0-1.7); CALCIUM 7.9 mg/dL (8.5-10.1); CREATININE 1.6 mg/dL (0.7-1.3); GFR 41.8; POTASSIUM 4.7 mmol/L (3.5-5.1); TOTAL BILIRUBIN 0.4 mg/dL (0.2-1.0); TOTAL PROTEIN 5.4 g/dL (6.4-8.2)
--- NOTE | 2020-02-03 10:20 | PDOC ---
PROGRESS NOTES Date of Service DATE: 02/03/20 TIME: 10:16 Assessment Problems Medical Problems: (1) Broca's aphasia Status: Acute (2) CVA (cerebral vascular accident) Status: Acute Stroke symptoms with aphasia, numbness on the right side of the body, status- post alteplase, all symptoms and signs have resolved. Negative CT angiogram. Has been taking aspirin 81 mg daily Coronary artery disease, congestive heart failure, hyperlipidemia, hypertension, COPD, asthma, benign prostatic hyperplasia, gout, ex-smoker Plan No ICU beds were available, patient was monitored until late last night in the emergency department MRI of the brain today Echocardiogram Will resume aspirin and add clopidogrel starting tomorrow Discussed with patient and his Subjective No complaints Objective Vital Signs Date Time Temp Pulse Resp B/P (MAP) Pulse Ox O2 Delivery O2 Flow Rate FiO2 02/03/20 08:00 Room Air 02/03/20 06:00 105/53 (70) 02/03/20 03:00 97.7 65 18 93 97.7 Intake and Output 02/03/20 07:00 Intake Total 100 ml Output Total 200 ml Balance -100 ml Intake Oral 100 ml Output Urine Total 200 ml PHYSICAL EXAM Physical Exam: Alert. Oriented to time, place and person. PERRL. EOMI. CN: no focal findings. Muscle tone: normal. Muscle strength: 5/5 DTR: 1+ Plantar reflex: Flexor Gait: Normal. Sensory exam: no abnormal findings. No cerebellar signs elicited. Review of Relevant I have reviewed the following items delroy (where applicable) has been applied. Labs Laboratory Tests Test 02/02/20 11:07 02/02/20 13:40 02/03/20 04:56 White Blood Count 7.6 x10^3/uL (4.0-11.0) 7.1 x10^3/uL (4.0-11.0) Red Blood Count 4.39 x10^6/uL (4.30-5.70) 4.16 x10^6/uL (4.30-5.70) Hemoglobin 14.5 g/dL (13.0-17.5) 13.6 g/dL (13.0-17.5) Hematocrit 43.0 % (39.0-53.0) 40.7 % (39.0-53.0) Mean Corpuscular Volume 98 fL (79-100) 98 fL (79-100) Mean Corpuscular Hemoglobin 33 pg (25-35) 33 pg (25-35) Mean Corpuscular Hemoglobin Concent 34 g/dL (31-37) 34 g/dL (31-37) Red Cell Distribution Width 14.0 % (11.5-14.5) 13.6 % (11.5-14.5) Platelet Count 252 x10^3/uL (140-400) 224 x10^3/uL (140-400) Neutrophils (%) (Auto) 62 % (31-73) 62 % (31-73) Lymphocytes (%) (Auto) 26 % (24-48) 25 % (24-48) Monocytes (%) (Auto) 8 % (0-9) 10 % (0-9) Eosinophils (%) (Auto) 2 % (0-3) 2 % (0-3) Basophils (%) (Auto) 1 % (0-3) 1 % (0-3) Neutrophils # (Auto) 4.7 x10^3/uL (1.8-7.7) 4.4 x10^3/uL (1.8-7.7) Lymphocytes # (Auto) 2.0 x10^3/uL (1.0-4.8) 1.8 x10^3/uL (1.0-4.8) Monocytes # (Auto) 0.6 x10^3/uL (0.0-1.1) 0.7 x10^3/uL (0.0-1.1) Eosinophils # (Auto) 0.1 x10^3/uL (0.0-0.7) 0.1 x10^3/uL (0.0-0.7) Basophils # (Auto) 0.1 x10^3/uL (0.0-0.2) 0.1 x10^3/uL (0.0-0.2) Prothrombin Time 14.3 SEC (11.7-14.0) 15.9 SEC (11.7-14.0) Prothromb Time International Ratio 1.2 (0.8-1.1) 1.3 (0.8-1.1) Activated Partial Thromboplast Time 28 SEC (24-38) 31 SEC (24-38) Sodium Level 138 mmol/L (136-145) 142 mmol/L (136-145) Potassium Level 4.9 mmol/L (3.5-5.1) 4.7 mmol/L (3.5-5.1) Chloride Level 106 mmol/L (98-107) 110 mmol/L (98-107) Carbon Dioxide Level 21 mmol/L (21-32) 22 mmol/L (21-32) Anion Gap 11 (6-14) 10 (6-14) Blood Urea Nitrogen 31 mg/dL (8-26) 27 mg/dL (8-26) Creatinine 1.7 mg/dL (0.7-1.3) 1.6 mg/dL (0.7-1.3) Estimated GFR (Cockcroft-Gault) 39.0 41.8 BUN/Creatinine Ratio 18 (6-20) 17 (6-20) Glucose Level 102 mg/dL (70-99) 92 mg/dL (70-99) Calcium Level 8.0 mg/dL (8.5-10.1) 7.9 mg/dL (8.5-10.1) Magnesium Level 2.5 mg/dL (1.8-2.4) Total Bilirubin 0.4 mg/dL (0.2-1.0) 0.4 mg/dL (0.2-1.0) Aspartate Amino Transf (AST/SGOT) 12 U/L (15-37) 10 U/L (15-37) Alanine Aminotransferase (ALT/SGPT) 14 U/L (16-63) 16 U/L (16-63) Alkaline Phosphatase 46 U/L (46-116) 45 U/L (46-116) Troponin I Quantitative < 0.017 ng/mL (0.000-0.055) 0.046 ng/mL (0.000-0.055) FY-Zgu-S-Type Natriuretic Peptide 3833 pg/mL (0-449) Total Protein 5.9 g/dL (6.4-8.2) 5.4 g/dL (6.4-8.2) Albumin 3.0 g/dL (3.4-5.0) 2.9 g/dL (3.4-5.0) Albumin/Globulin Ratio 1.0 (1.0-1.7) 1.2 (1.0-1.7) Ethyl Alcohol Level < 10 mg/dL (0-10) Urine Opiates Screen Neg (NEG) Urine Methadone Screen Neg (NEG) Urine Barbiturates Neg (NEG) Urine Phencyclidine Screen Neg (NEG) Urine Amphetamine/Methamphetamine Neg (NEG) Urine Benzodiazepines Screen Neg (NEG) Urine Cocaine Screen Neg (NEG) Urine Cannabinoids Screen Neg (NEG) Urine Ethyl Alcohol Neg (NEG) Laboratory Tests Test 02/02/20 11:07 02/02/20 13:40 02/03/20 04:56 White Blood Count 7.6 x10^3/uL (4.0-11.0) 7.1 x10^3/uL (4.0-11.0) Red Blood Count 4.39 x10^6/uL (4.30-5.70) 4.16 x10^6/uL (4.30-5.70) Hemoglobin 14.5 g/dL (13.0-17.5) 13.6 g/dL (13.0-17.5) Hematocrit 43.0 % (39.0-53.0) 40.7 % (39.0-53.0) Mean Corpuscular Volume 98 fL (79-100) 98 fL (79-100) Mean Corpuscular Hemoglobin 33 pg (25-35) 33 pg (25-35) Mean Corpuscular Hemoglobin Concent 34 g/dL (31-37) 34 g/dL (31-37) Red Cell Distribution Width 14.0 % (11.5-14.5) 13.6 % (11.5-14.5) Platelet Count 252 x10^3/uL (140-400) 224 x10^3/uL (140-400) Neutrophils (%) (Auto) 62 % (31-73) 62 % (31-73) Lymphocytes (%) (Auto) 26 % (24-48) 25 % (24-48) Monocytes (%) (Auto) 8 % (0-9) 10 % (0-9) Eosinophils (%) (Auto) 2 % (0-3) 2 % (0-3) Basophils (%) (Auto) 1 % (0-3) 1 % (0-3) Neutrophils # (Auto) 4.7 x10^3/uL (1.8-7.7) 4.4 x10^3/uL (1.8-7.7) Lymphocytes # (Auto) 2.0 x10^3/uL (1.0-4.8) 1.8 x10^3/uL (1.0-4.8) Monocytes # (Auto) 0.6 x10^3/uL (0.0-1.1) 0.7 x10^3/uL (0.0-1.1) Eosinophils # (Auto) 0.1 x10^3/uL (0.0-0.7) 0.1 x10^3/uL (0.0-0.7) Basophils # (Auto) 0.1 x10^3/uL (0.0-0.2) 0.1 x10^3/uL (0.0-0.2) Prothrombin Time 14.3 SEC (11.7-14.0) 15.9 SEC (11.7-14.0) Prothromb Time International Ratio 1.2 (0.8-1.1) 1.3 (0.8-1.1) Activated Partial Thromboplast Time 28 SEC (24-38) 31 SEC (24-38) Sodium Level 138 mmol/L (136-145) 142 mmol/L (136-145) Potassium Level 4.9 mmol/L (3.5-5.1) 4.7 mmol/L (3.5-5.1) Chloride Level 106 mmol/L (98-107) 110 mmol/L (98-107) Carbon Dioxide Level 21 mmol/L (21-32) 22 mmol/L (21-32) Anion Gap 11 (6-14) 10 (6-14) Blood Urea Nitrogen 31 mg/dL (8-26) 27 mg/dL (8-26) Creatinine 1.7 mg/dL (0.7-1.3) 1.6 mg/dL (0.7-1.3) Estimated GFR (Cockcroft-Gault) 39.0 41.8 BUN/Creatinine Ratio 18 (6-20) 17 (6-20) Glucose Level 102 mg/dL (70-99) 92 mg/dL (70-99) Calcium Level 8.0 mg/dL (8.5-10.1) 7.9 mg/dL (8.5-10.1) Magnesium Level 2.5 mg/dL (1.8-2.4) Total Bilirubin 0.4 mg/dL (0.2-1.0) 0.4 mg/dL (0.2-1.0) Aspartate Amino Transf (AST/SGOT) 12 U/L (15-37) 10 U/L (15-37) Alanine Aminotransferase (ALT/SGPT) 14 U/L (16-63) 16 U/L (16-63) Alkaline Phosphatase 46 U/L (46-116) 45 U/L (46-116) Troponin I Quantitative < 0.017 ng/mL (0.000-0.055) 0.046 ng/mL (0.000-0.055) WE-Gyy-N-Type Natriuretic Peptide 3833 pg/mL (0-449) Total Protein 5.9 g/dL (6.4-8.2) 5.4 g/dL (6.4-8.2) Albumin 3.0 g/dL (3.4-5.0) 2.9 g/dL (3.4-5.0) Albumin/Globulin Ratio 1.0 (1.0-1.7) 1.2 (1.0-1.7) Ethyl Alcohol Level < 10 mg/dL (0-10) Urine Opiates Screen Neg (NEG) Urine Methadone Screen Neg (NEG) Urine Barbiturates Neg (NEG) Urine Phencyclidine Screen Neg (NEG) Urine Amphetamine/Methamphetamine Neg (NEG) Urine Benzodiazepines Screen Neg (NEG) Urine Cocaine Screen Neg (NEG) Urine Cannabinoids Screen Neg (NEG) Urine Ethyl Alcohol Neg (NEG) Medications Current Medications Alteplase, Recombinant 8.5 ml @ 510 mls/hr 1X ONCE IV Last administered on 02/02/20at 11:51; Start 02/02/20 at 11:30; Stop 02/02/20 at 11:31; Status DC Alteplase, Recombinant 76.8 ml @ 76.8 mls/hr Q1H IV Last administered on 02/02/20at 11:50; Start 02/02/20 at 11:30; Stop 02/02/20 at 12:29; Status DC Sodium Chloride 50 ml @ 200 mls/hr 1X ONCE IV Last administered on 02/02/20at 11:52; Start 02/02/20 at 11:30; Stop 02/02/20 at 11:44; Status DC Alteplase, Recombinant 0 ml @ 0 mls/hr Q1H IV ; Start 02/02/20 at 11:30; Stop 02/02/20 at 11:31; Status UNV Sodium Chloride 50 ml @ 0 mls/hr 1X ONCE IV ; Start 02/02/20 at 11:30; Stop 02/02/20 at 11:32; Status DC Labetalol HCl (Normodyne Iv Push) 10 mg PRN Q10MIN PRN IVP HYPERTENSION; Start 02/02/20 at 11:30 Nicardipine HCl 50 mg/Sodium Chloride 250 ml @ 25 mls/hr CONT PRN PRN IV HYPERTENSION; Start 02/02/20 at 11:30 Iohexol (Omnipaque 350 Mg/ml) 75 ml 1X ONCE IV Last administered on 02/02/20at 12:30; Start 02/02/20 at 12:30; Stop 02/02/20 at 12:31; Status DC Info (CONTRAST GIVEN -- Rx MONITORING) 1 each PRN DAILY PRN MC SEE COMMENTS; Start 02/02/20 at 12:30; Stop 02/04/20 at 12:29 Albuterol Sulfate (Ventolin Neb Soln) 2.5 mg PRN Q4HRS PRN NEB SHORTNESS OF BREATH; Start 02/02/20 at 15:45 Ondansetron HCl (Zofran) 4 mg PRN Q4HRS PRN IV NAUSEA/VOMITING; Start 02/02/20 at 18:45 Acetaminophen (Tylenol Supp) 650 mg PRN Q4HRS PRN CO TEMP OVER 100.4F OR MILD PAIN; Start 02/02/20 at 18:45 Bisacodyl (Dulcolax Supp) 10 mg PRN DAILY PRN CO CONSTIPATION; Start 02/02/20 at 18:45 Active Scripts Active Reported Carvedilol (Carvedilol) 6.25 Mg Tablet 6.25 Mg PO BIDWMEALS Simvastatin 20 Mg Tablet 1 Tab PO QHS Vitals/I & O Vital Sign - Last 24 Hours 02/02/20 02/02/20 02/02/20 02/02/20 10:49 11:16 11:31 11:45 Temp 97.5 97.5 Pulse 75 68 61 62 Resp 18 18 18 18 B/P (MAP) 159/77 (104) 153/75 (101) 151/76 (101) 163/69 (100) Pulse Ox 99 98 98 98 O2 Delivery Room Air Room Air Room Air Room Air 02/02/20 02/02/20 02/02/20 02/02/20 12:00 12:15 12:30 12:45 Pulse 59 60 61 62 Resp 18 18 18 18 B/P (MAP) 149/67 (94) 149/70 (96) 140/71 (94) 123/58 (79) Pulse Ox 98 98 98 98 O2 Delivery Room Air Room Air Room Air Room Air 02/02/20 02/02/20 02/02/20 02/02/20 13:00 13:15 13:30 13:45 Pulse 64 59 64 57 Resp 18 18 18 18 B/P (MAP) 128/61 (83) 103/59 (74) 92/47 (62) 122/58 (79) Pulse Ox 96 96 97 97 O2 Delivery Room Air Room Air Room Air Room Air 02/02/20 02/02/20 02/02/20 02/02/20 14:00 14:15 14:30 14:45 Pulse 59 59 59 59 Resp 18 18 18 18 B/P (MAP) 121/57 (78) 123/61 (81) 135/65 (88) 137/77 (97) Pulse Ox 97 97 97 97 O2 Delivery Room Air Room Air Room Air Room Air 02/02/20 02/02/20 02/02/20 02/02/20 15:00 15:30 16:00 16:30 Pulse 58 62 65 67 Resp 18 18 18 18 B/P (MAP) 137/97 (110) 143/64 (90) 142/62 (88) 164/72 (102) Pulse Ox 95 95 97 97 O2 Delivery Room Air Room Air Room Air Room Air 02/02/20 02/02/20 02/02/20 02/02/20 17:00 17:30 18:00 18:30 Pulse 61 61 65 73 Resp 18 18 18 18 B/P (MAP) 143/71 (95) 136/66 (89) 142/73 (96) 136/64 (88) Pulse Ox 97 97 97 97 O2 Delivery Room Air Room Air Room Air Room Air 02/02/20 02/02/20 02/02/20 02/02/20 19:30 21:15 21:45 22:00 Temp 97.9 97.9 Pulse 63 63 Resp 18 18 B/P (MAP) 105/56 (72) 135/65 (88) 104/51 (68) Pulse Ox 98 95 O2 Delivery Room Air Room Air Room Air 02/02/20 02/03/20 02/03/20 02/03/20 23:06 00:01 01:00 02:00 Temp 97.7 97.7 Pulse 64 Resp 16 B/P (MAP) 111/56 (74) 96/48 (64) 106/51 (69) 152/66 (94) Pulse Ox 95 O2 Delivery Room Air 02/03/20 02/03/20 02/03/20 02/03/20 03:00 04:00 05:00 06:00 Temp 97.7 97.7 Pulse 65 Resp 18 B/P (MAP) 111/51 (71) 110/54 (72) 97/48 (64) 105/53 (70) Pulse Ox 93 O2 Delivery Room Air 02/03/20 08:00 O2 Delivery Room Air Intake and Output 02/02/20 02/02/20 02/03/20 15:00 23:00 07:00 Intake Total 100 ml Output Total 200 ml Balance -100 ml Justicifation of Admission Dx: Justifications for Admission: Justification of Admission Dx: Yes Stroke - Ischemic: Stroke-Ischemic MONET KING MD Feb 03, 2020 10:20
--- NOTE | 2020-02-03 10:32 | PDOC2 ---
MARY ELLEN LOERA SALESPERSON FLOOR COVERINGS 02/03/20 1032: CARDIAC CONSULT DATE OF CONSULT Date of Consult DATE: 02/03/20 TIME: 10:19 REASON FOR CONSULT Reason for Consult: CHF, CAD REFERRING PHYSICIAN Referring Physician: Dr. Killian SOURCE Source: Chart review, Patient HISTORY OF PRESENT ILLNESS HISTORY OF PRESENT ILLNESS This is an 79 yo male who presented with new onset right sided weakness, aphasia that began around 10:15 am yesterday morning. EMS was called. CT head negative for acute findings. Given concerns for acute stroke, tPA was administered. Symptoms resolved and patient/ reports his mentation, speech, and weakness has resolved. He does have a history of CAD s/p PCI/stent and cardiomyopathy. Is here visiting family from out of [facility]. Follow with resistor inspector, Dr. Jacome, in [place]. He denies any chest pain, palpitations, dizziness, diaphoresis, or nausea/vomiting. No recent illness/fevers. . PAST MEDICAL HISTORY Cardiovascular: CAD, CHF, HTN, Hyperlipidemia Pulmonary: Asthma, COPD Renal/: Benign prostatic enlarg. PAST SURGICAL HISTORY Past Surgical History: Other (PCI/stent ) FAMILY HISTORY Family History: Heart Disease, High Cholestrol, Hypertension SOCIAL HISTORY Smoke: Quit ALCOHOL: occassional Drugs: None Lives: with Family CURRENT MEDICATIONS CURRENT MEDICATIONS Current Medications Medications (Trade) Dose Ordered Sig/Ivana Route PRN Reason Start Time Stop Time Status Last Admin Dose Admin Alteplase, Recombinant 8.5 ml @ 510 mls/hr 1X ONCE IV 02/02/20 11:30 02/02/20 11:31 DC 02/02/20 11:51 Alteplase, Recombinant 76.8 ml @ 76.8 mls/hr Q1H IV 02/02/20 11:30 02/02/20 12:29 DC 02/02/20 11:50 Sodium Chloride 50 ml @ 200 mls/hr 1X ONCE IV 02/02/20 11:30 02/02/20 11:44 DC 02/02/20 11:52 Iohexol (Omnipaque 350 Mg/ml) 75 ml 1X ONCE IV 02/02/20 12:30 02/02/20 12:31 DC 02/02/20 12:30 ALLERGIES ALLERGIES: Coded Allergies: No Known Drug Allergies (Unverified , 02/02/20) ROS Review of System 14 point ROS conducted with pertinent positives noted above in HPI PHYSICAL EXAM General: Alert, Oriented X3, Cooperative, No acute distress HEENT: Atraumatic, Mucous membr. moist/pink Lungs: Clear to auscultation Heart: Regular rate, Normal S1, Normal S2, Other (2/6 systolic murmur ) Abdomen: Soft, No tenderness Extremities: No edema, Normal pulses Skin: No significant lesion Neuro: Normal speech, Sensation intact Psych/Mental Status: Mental status NL, Mood NL MUSCULOSKELETAL: Osteoarthritic changes both hands VITALS/I&O VITALS/I&O: Vital Signs Date Time Temp Pulse Resp B/P (MAP) Pulse Ox O2 Delivery O2 Flow Rate FiO2 02/03/20 08:00 Room Air 02/03/20 06:00 105/53 (70) 02/03/20 03:00 97.7 65 18 93 97.7 I & O 02/02/20 02/02/20 02/03/20 15:00 23:00 07:00 Intake Total 100 ml Output Total 200 ml Balance -100 ml LABS Lab: Laboratory Tests Test 02/02/20 11:07 02/02/20 13:40 02/03/20 04:56 White Blood Count 7.6 x10^3/uL (4.0-11.0) 7.1 x10^3/uL (4.0-11.0) Red Blood Count 4.39 x10^6/uL (4.30-5.70) 4.16 x10^6/uL (4.30-5.70) L Hemoglobin 14.5 g/dL (13.0-17.5) 13.6 g/dL (13.0-17.5) Hematocrit 43.0 % (39.0-53.0) 40.7 % (39.0-53.0) Mean Corpuscular Volume 98 fL (79-100) 98 fL (79-100) Mean Corpuscular Hemoglobin 33 pg (25-35) 33 pg (25-35) Mean Corpuscular Hemoglobin Concent 34 g/dL (31-37) 34 g/dL (31-37) Red Cell Distribution Width 14.0 % (11.5-14.5) 13.6 % (11.5-14.5) Platelet Count 252 x10^3/uL (140-400) 224 x10^3/uL (140-400) Neutrophils (%) (Auto) 62 % (31-73) 62 % (31-73) Lymphocytes (%) (Auto) 26 % (24-48) 25 % (24-48) Monocytes (%) (Auto) 8 % (0-9) 10 % (0-9) H Eosinophils (%) (Auto) 2 % (0-3) 2 % (0-3) Basophils (%) (Auto) 1 % (0-3) 1 % (0-3) Neutrophils # (Auto) 4.7 x10^3/uL (1.8-7.7) 4.4 x10^3/uL (1.8-7.7) Lymphocytes # (Auto) 2.0 x10^3/uL (1.0-4.8) 1.8 x10^3/uL (1.0-4.8) Monocytes # (Auto) 0.6 x10^3/uL (0.0-1.1) 0.7 x10^3/uL (0.0-1.1) Eosinophils # (Auto) 0.1 x10^3/uL (0.0-0.7) 0.1 x10^3/uL (0.0-0.7) Basophils # (Auto) 0.1 x10^3/uL (0.0-0.2) 0.1 x10^3/uL (0.0-0.2) Prothrombin Time 14.3 SEC (11.7-14.0) H 15.9 SEC (11.7-14.0) H Prothrombin Time INR 1.2 (0.8-1.1) H 1.3 (0.8-1.1) H Activated Partial Thromboplast Time 28 SEC (24-38) 31 SEC (24-38) Sodium Level 138 mmol/L (136-145) 142 mmol/L (136-145) Potassium Level 4.9 mmol/L (3.5-5.1) 4.7 mmol/L (3.5-5.1) Chloride Level 106 mmol/L (98-107) 110 mmol/L (98-107) H Carbon Dioxide Level 21 mmol/L (21-32) 22 mmol/L (21-32) Anion Gap 11 (6-14) 10 (6-14) Blood Urea Nitrogen 31 mg/dL (8-26) H 27 mg/dL (8-26) H Creatinine 1.7 mg/dL (0.7-1.3) H 1.6 mg/dL (0.7-1.3) H Estimated GFR (Cockcroft-Gault) 39.0 41.8 BUN/Creatinine Ratio 18 (6-20) 17 (6-20) Glucose Level 102 mg/dL (70-99) H 92 mg/dL (70-99) Calcium Level 8.0 mg/dL (8.5-10.1) L 7.9 mg/dL (8.5-10.1) L Magnesium Level 2.5 mg/dL (1.8-2.4) H Total Bilirubin 0.4 mg/dL (0.2-1.0) 0.4 mg/dL (0.2-1.0) Aspartate Amino Transferase (AST) 12 U/L (15-37) L 10 U/L (15-37) L Alanine Aminotransferase (ALT) 14 U/L (16-63) L 16 U/L (16-63) Alkaline Phosphatase 46 U/L (46-116) 45 U/L (46-116) L Troponin I Quantitative < 0.017 ng/mL (0.000-0.055) 0.046 ng/mL (0.000-0.055) PC-Guc-F-Type Natriuretic Peptide 3833 pg/mL (0-449) H Total Protein 5.9 g/dL (6.4-8.2) L 5.4 g/dL (6.4-8.2) L Albumin 3.0 g/dL (3.4-5.0) L 2.9 g/dL (3.4-5.0) L Albumin/Globulin Ratio 1.0 (1.0-1.7) 1.2 (1.0-1.7) Ethyl Alcohol Level < 10 mg/dL (0-10) Urine Opiates Screen Neg (NEG) Urine Methadone Screen Neg (NEG) Urine Barbiturates Neg (NEG) Urine Phencyclidine Screen Neg (NEG) Urine Amphetamine/Methamphetamine Neg (NEG) Urine Benzodiazepines Screen Neg (NEG) Urine Cocaine Screen Neg (NEG) Urine Cannabinoids Screen Neg (NEG) Urine Ethyl Alcohol Neg (NEG) Laboratory Tests 02/02/20 11:07 02/03/20 04:56 Laboratory Tests 02/02/20 11:07 02/03/20 04:56 ASSESSMENT/PLAN ASSESSMENT/PLAN 1. Probable acute CVA s/p TPA. symptoms resolved 2. CAD s/p PCI/MIRLANDE 10 years ago. Follows with Dr. Haney with [facility] in [place], [place] 3. Chronic systolic CHF; appears compensated 4. Presumed ischemic cardiomyopathy; echo last month reportedly "unchanged" from previous 5. Hypertension; controlled 6. Hyperlipidemia; statin 7. COPD; clinically compensated Recommendations Add statin therapy ASA when okay from neuro standpoint PT/OT MRI today Continue BB, statin therapy Echo to assess LV systolic function Obtain records from primary resistor inspector Further pending above. JAMESON SAMUEL MD 02/04/20 0720: CARDIAC CONSULT ASSESSMENT/PLAN ASSESSMENT/PLAN Late entry for 02/03/2020 Pt. seen and examined. Agree with above SENIOR SOFTWARE DEVELOPMENT MANAGER note. Awaiting records from primary resistor inspector in [facility] prior to plans for DC Pt. has severe LV dysfunction, would recommend initiation of anticoagulation + ASA rather than dual antiplatelet therapy. MARY ELLEN LOERA APRN Feb 03, 2020 10:32 JAMESON SAMUEL MD Feb 04, 2020 07:20
--- NOTE | 2020-02-03 11:53 | PDOC ---
PROGRESS NOTES Date of Service: DATE: 02/03/20 TIME: 11:[address] Head: No intracranial hemorrhage, mass, hydrocephalus or infarction. No acute ischemic change evident. Orbits, mastoids and bones are unremarkable. IMPRESSION: No acute abnormality CTA neck: Mild plaquing of the ostia the vessels from the aortic arch without stenosis. Tortuosity of the vessels at the thoracic inlet. Left vertebral artery is dominant. No plaquing, dissection, thrombus, stenosis or occlusion the vertebral arteries. Left carotid artery demonstrates partially calcified plaque at the bifurcation contributing to 10 percent stenosis. No dissection, thrombus or occlusion. Right carotid artery demonstrates partially calcified plaque at the bifurcation contributing to 40 percent stenosis at the termination of the common carotid and origin of the internal carotid artery. No dissection, thrombus or occlusion. Cervical disc osteophytes and uncovertebral spurs with spinal canal and neural foraminal stenoses. CT head findings: Mild calcified plaque cavernous carotid arteries without stenosis. No large vessel occlusion. No thrombus, significant stenosis, occlusion or aneurysm. Patent left posterior indicating artery. Patent anterior to indicating artery. Right anterior cerebral artery A1 segment is hypoplastic. IMPRESSION: 1. No large vessel occlusion. 2. Cervical carotid artery plaquing without significant stenosis. 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 Likely prevented early CVA. Neuro consulted Right sided weakness - Resolved s/p tPA CAD s/p x2 MIRLANDE (10+ years) - on plavix. Follows in [place], [place]. Hold antiplatelets after tPA administration. Will reconcile his other meds Chronic systolic CHF (EF 40%) - stable currently, seems euvolemic, will obtain [facility] records HTN - PRN nicardipine/labetalol for SBP < 180mmHg HLD - statin BPH - flomax COPD - prn albuterol Renal mass s/p RFA - will f/u with records SUSIE - baseline Cr unknown, no significant renal disease plan icu bed FEN - NPO pending swallow evaluation PPX - TPA given CODE - DNR/DNI Dispo - inpatient ICU NEPHROLOGY CONSULT CC time 40 minutes Justifications for Admission Justifications for Admission Other Justification History of Present Illness History of Present Illness Identification/Chief Complaint Chief Complaint Garbled speech, right arm and leg weakness Source Source: Caregiver, Chart review, Patient History of Present Illness History of Present Illness Mr Hamm is an 79 yo M w/ PMHx COPD, CAD s/p x2 MIRLANDE (10+ years) on plavix, renal mass s/p RFA, chronic systolic CHF (EF 40%), HTN, BPH, and HLD who presents to the ED brought in by EMS as a code stroke activation, last known well around 1015 AM this morning. EMS reports patient was picked up at a nearby liquor store with sudden onset slurred speech and right-sided weakness- witn essed event/pt slumped to right side, not fall or hit his head. EMS reported patient had right-sided flaccidity and aphasia with left lower facial droop. Glucose within normal limits. On no anticoagulants. EKG with NSR 65 bpm, left axis deviation, QTC 465, W[place] 206, first-degree AV block, left bundle branch block present, T wave inversions V4 through V6, 1, 2 and aVL, no prior EKG for comparison CXR with borderline cardiomegaly no acute abnormalities. CT head with no acute hemorrhage. CT angiogram head and neck with bilateral carotid plaques no thrombi noted. Labs significant for WBC 7.6, Hb 14.5, platelets 252, INR 1.2, PTT 28, calcium 8, NA 138, K4.9, BUN 31, CR 1.7, glucose 102. NIHSS 6 on admit with ED. Contacted by ED for admission and we discussed with neurology, no absolute contraindications to tPA, which was administered with improvement in symptoms to NIHSS of 1 upon my evaluation. Seen in ED bedside with his and [id number] (he and his are from [facility] in town visiting his son and [id number] who are the owners of a liquor store where this incident occurred.) His and [id number] note that at baseline he does have some occasional word-finding difficulty. Admitted to ICU for post-tPA care. Past Medical History Cardiovascular: CAD, CHF, HTN, Hyperlipidemia Pulmonary: COPD Renal/: Benign prostatic enlarg. Past Surgical History Past Surgical History: Cystoscopy Family History Family History: Cancer, High Cholestrol, Hypertension Social History Smoke: Quit ALCOHOL: occassional Drugs: None Vitals Vitals Vital Signs Date Time Temp Pulse Resp B/P (MAP) Pulse Ox O2 Delivery O2 Flow Rate FiO2 02/03/20 08:00 Room Air 02/03/20 06:00 105/53 (70) 02/03/20 03:00 97.7 65 18 93 97.7 Physical Exam General: Alert, Oriented X3, Cooperative, No acute distress Heart: Regular rate Abdomen: Normal bowel sounds, Soft, No tenderness, No hepatosplenomegaly, No masses Extremities: No clubbing, No cyanosis, No edema, Normal pulses, No tenderness/swelling Skin: No rashes, No breakdown, No significant lesion Labs LABS Signed PATIENT: CARLOTA HAMM ACCOUNT: [id number] : 1940 LOCATION: ER AGE: 79 SEX: M EXAM STATUS: PRE ER ORD. PHYSICIAN: LYN ROSE DO REASON: right weakness and speech changes PROCEDURE: CT CODE STROKE HEAD WO CT head without contrast Exposure: One or more of the following individualized dose reduction techniques were utilized for this examination: 1. Automated exposure control 2. Adjustment of the mA and/or kV according to patient size 3. Use of iterative reconstruction technique History: Code stroke. Right-sided weakness. Speech changes. FINDINGS: No intracranial hemorrhage, mass, hydrocephalus or infarction. No acute ischemic change evident. Orbits, mastoids and bones are unremarkable. IMPRESSION: No acute abnormality. FOR INTERNAL CODING PURPOSES Critical result: Findings discussed with LYN ROSE at 02/02/2020 11:05 AM. RESULT CODE: (C) Electronically signed by: Antonio Elrdidge MD (02/02/2020 11:08 AM) [id number] DICTATED and SIGNED BY: ANTONIO ELDRIDGE MD DATE: 02/02/20 [address], MR, and conventional angiography are based upon measurements of the distal ICA diameter in accordance with the NASCET methodology. Stenosis calculations for carotid ultrasound studies are derived from validated velocity criteria which are known to correlate with the NASCET methodology. PQRS statement: CT scans at this facility use dose reduction including either automated exposure control, iterative reconstructions, and /or weight based radiation dosing via mA and kV modification when appropriate to reduce radiation dose to as low as reasonably achievable. Technique: CT imaging head and neck with 75 mL of opaque 350 intravenous contrast with 3-D MIP reconstructions of the arteries acquired. CTA neck: Mild plaquing of the ostia the vessels from the aortic arch without stenosis. Tortuosity of the vessels at the thoracic inlet. Left vertebral artery is dominant. No plaquing, dissection, thrombus, stenosis or occlusion the vertebral arteries. Left carotid artery demonstrates partially calcified plaque at the bifurcation contributing to 10 percent stenosis. No dissection, thrombus or occlusion. Right carotid artery demonstrates partially calcified plaque at the bifurcation contributing to 40 percent stenosis at the termination of the common carotid and origin of the internal carotid artery. No dissection, thrombus or occlusion. Cervical disc osteophytes and uncovertebral spurs with spinal canal and neural foraminal stenoses. CT head findings: Mild calcified plaque cavernous carotid arteries without stenosis. No large vessel occlusion. No thrombus, significant stenosis, occlusion or aneurysm. Patent left posterior indicating artery. Patent anterior to indicating artery. Right anterior cerebral artery A1 segment is hypoplastic. IMPRESSION: 1. No large vessel occlusion. 2. Cervical carotid artery plaquing without significant stenosis. FOR INTERNAL CODING PURPOSES Critical result: Findings discussed with LYN ROSE at 02/02/2020 11:08 AM. RESULT CODE: (C) Electronically signed by: Antonio Eldridge MD (02/02/2020 11:18 AM) Clinical Indications: Cerebrovascular accident. Exam : Carotid Duplex with Grayscale Ultrasound and Spectral and Color Doppler Analysis: PQRS Compliance Statement - Stenosis calculations for CT, MR and conventional angiography are based upon measurement of the distal ICA diameter in accordance with the NASCET methodology. Stenosis calculations for carotid ultrasound studies are derived from validated velocity criteria which are known to correlate with the NASCET methodology. Comparison study: None available. Findings: The common, internal and external carotid arteries were examined by grayscale, color and spectral Doppler ultrasound. Moderate atherosclerotic calcifications identified in the bilateral carotid bulbs and the proximal internal carotid arteries. Flow in both vertebral arteries was antegrade and normal. The following are the velocities and ratios in the carotid arteries on both sides: RIGHT ICA PV: 63cm/sec RIGHT CCA PV: 77cm/sec RIGHT ICA ED: 19cm/sec RIGHT IC/CCPV: 0.9 RIGHT VERTEBRAL: antegrade flow RIGHT % STENOSIS: Less than 50 percent LEFT ICA PV: 71cm/sec LEFT CCA PV: 93cm/sec LEFT ICA ED: 17cm/sec LEFT IC/CCPV: 0.7 LEFT VERTEBRAL: antegrade flow LEFT % STENOSIS: Less than 50 percent <50% ICA Stenosis: PSV < 125cm/s (EDV < 40cm/s; SVR < 2.0) 50-69% ICA Stenosis: PSV < 125-229cm/s (EDV 40-99cm/s; SVR 2.0-3.9) >70% ICA Stenosis: PSV > 230cm/s (EDV >100cm/s; SVR >4.0) Impression: No evidence of hemodynamically significant stenosis. Electronically signed by: Bakari Michael MD (02/02/2020 5:26 PM) [id number] DICTATED and SIGNED BY: BAKARI MICHAEL MD DATE: 02/02/20 1726 Laboratory Tests Test 02/02/20 13:40 02/03/20 04:56 Urine Opiates Screen Neg (NEG) Urine Methadone Screen Neg (NEG) Urine Barbiturates Neg (NEG) Urine Phencyclidine Screen Neg (NEG) Urine Amphetamine/Methamphetamine Neg (NEG) Urine Benzodiazepines Screen Neg (NEG) Urine Cocaine Screen Neg (NEG) Urine Cannabinoids Screen Neg (NEG) Urine Ethyl Alcohol Neg (NEG) White Blood Count 7.1 x10^3/uL (4.0-11.0) Red Blood Count 4.16 x10^6/uL (4.30-5.70) Hemoglobin 13.6 g/dL (13.0-17.5) Hematocrit 40.7 % (39.0-53.0) Mean Corpuscular Volume 98 fL (79-100) Mean Corpuscular Hemoglobin 33 pg (25-35) Mean Corpuscular Hemoglobin Concent 34 g/dL (31-37) Red Cell Distribution Width 13.6 % (11.5-14.5) Platelet Count 224 x10^3/uL (140-400) Neutrophils (%) (Auto) 62 % (31-73) Lymphocytes (%) (Auto) 25 % (24-48) Monocytes (%) (Auto) 10 % (0-9) Eosinophils (%) (Auto) 2 % (0-3) Basophils (%) (Auto) 1 % (0-3) Neutrophils # (Auto) 4.4 x10^3/uL (1.8-7.7) Lymphocytes # (Auto) 1.8 x10^3/uL (1.0-4.8) Monocytes # (Auto) 0.7 x10^3/uL (0.0-1.1) Eosinophils # (Auto) 0.1 x10^3/uL (0.0-0.7) Basophils # (Auto) 0.1 x10^3/uL (0.0-0.2) Prothrombin Time 15.9 SEC (11.7-14.0) Prothromb Time International Ratio 1.3 (0.8-1.1) Activated Partial Thromboplast Time 31 SEC (24-38) Sodium Level 142 mmol/L (136-145) Potassium Level 4.7 mmol/L (3.5-5.1) Chloride Level 110 mmol/L (98-107) Carbon Dioxide Level 22 mmol/L (21-32) Anion Gap 10 (6-14) Blood Urea Nitrogen 27 mg/dL (8-26) Creatinine 1.6 mg/dL (0.7-1.3) Estimated GFR (Cockcroft-Gault) 41.8 BUN/Creatinine Ratio 17 (6-20) Glucose Level 92 mg/dL (70-99) Calcium Level 7.9 mg/dL (8.5-10.1) Total Bilirubin 0.4 mg/dL (0.2-1.0) Aspartate Amino Transf (AST/SGOT) 10 U/L (15-37) Alanine Aminotransferase (ALT/SGPT) 16 U/L (16-63) Alkaline Phosphatase 45 U/L (46-116) Troponin I Quantitative 0.046 ng/mL (0.000-0.055) Total Protein 5.4 g/dL (6.4-8.2) Albumin 2.9 g/dL (3.4-5.0) Albumin/Globulin Ratio 1.2 (1.0-1.7) Assessment and Plan Assessmemt and Plan Problems Medical Problems: (1) Broca's aphasia Status: Acute (2) CVA (cerebral vascular accident) Status: Acute DPOA REVIEW 18 MIN to patient portal What Is a Power of Intelligence Agent? A power of science faculty member (POA) is a legal document giving one person (the agent or hjjhkzii-ay-lzpz) the power to act for another person (the principal). The agent can have broad legal authority or limited authority to make legal decisions about the principal's property, finances or medical care. The power of science faculty member is frequently used in the event of a principal's illness or disability, or when the principal can't be present to sign necessary legal documents for financial transactions. A power of science faculty member can end for a number of reasons, such as when the principal dies, the principal revokes it, a court invalidates it, the principal divorces their spouse, who happens to be the agent, or the agent can no longer carry out the outlined responsibilities. Conventional POAs lapse when the creator becomes incapacitated, but a durable POA remains in force to enable the agent to manage the creators affairs, and a springing POA comes into effect only if and when the creator of the POA becomes incapacitated. A medical or healthcare POA enables an agent to make medical decisions on behalf of an incapacitated person. [employer] A power of science faculty member (POA) is a legal document giving one person, the agent or [id number] the power to act for another person, the principal. The agent can have broad legal authority or limited authority to make decisions about the principal's property, finances or medical care. The power of science faculty member is often used when a principal becomes ill or disabled, or when they can't be present to sign necessary legal documents for financial transactions. Understanding Power of Intelligence Agent A power of science faculty member should be considered when planning for long-term care. There are different types of POAs that fall under either a general power of science faculty member or limited power of science faculty member. A general power of science faculty member acts on behalf of the principal in any and all matters, as allowed by the state. The agent under a general POA agreement may be authorized to take care of issues such as handling bank accounts, signing checks, selling property and assets like stocks, f A limited power of science faculty member gives the agent the power to act on behalf of the principal in specific matters or events. For example, the limited POA may explicitly state that the agent is only allowed to manage the principal's correction accounts. A limited POA may also be limited to a specific period of time (e.g., if the principal will be out of the country for, say, two years). Most ortega of science faculty member documents allow an agent to represent the principal in all property and financial matters as long as the principals mental state of mind is good. If a situation occurs where the principal becomes incapable of making decisions for him or herself, the POA agreement would automatically end. However, someone who wants the POA to remain in effect after the persons health deteriorates would need to sign a durable power of science faculty member (DPOA). What is an advance directive? An advance directive is a legal document that says how you want to be cared for if you are unable to make decisions. You can include what medical treatments you would want and who you would trust to make decisions for you. An advance directive can also include other legal documents. A living will is a list of treatment preferences. It can be used to indicate whether you would want cardiopulmonary resuscitation (CPR), tube feedings, a breathing machine, or certain medicines, like antibiotics. The durable power of science faculty member for health care document identifies the person you would want to make medical decisions for you. This person is also called a pro xy. Your proxy should be familiar with your values and wishes. How do I get started? You can get advance directive documents for your state from your doctor's office or from [email or web address].caringinfo.org. Review the forms, and ask your doctor if you have any questions. Pick a person to be your proxy, and talk it over with that person. CHEST AP ONLY, KUB Comment Review of Relevant I have reviewed the following items delroy (where applicable) has been applied. Labs Laboratory Tests Test 02/02/20 11:07 02/02/20 13:40 02/03/20 04:56 White Blood Count 7.6 x10^3/uL (4.0-11.0) 7.1 x10^3/uL (4.0-11.0) Red Blood Count 4.39 x10^6/uL (4.30-5.70) 4.16 x10^6/uL (4.30-5.70) Hemoglobin 14.5 g/dL (13.0-17.5) 13.6 g/dL (13.0-17.5) Hematocrit 43.0 % (39.0-53.0) 40.7 % (39.0-53.0) Mean Corpuscular Volume 98 fL (79-100) 98 fL (79-100) Mean Corpuscular Hemoglobin 33 pg (25-35) 33 pg (25-35) Mean Corpuscular Hemoglobin Concent 34 g/dL (31-37) 34 g/dL (31-37) Red Cell Distribution Width 14.0 % (11.5-14.5) 13.6 % (11.5-14.5) Platelet Count 252 x10^3/uL (140-400) 224 x10^3/uL (140-400) Neutrophils (%) (Auto) 62 % (31-73) 62 % (31-73) Lymphocytes (%) (Auto) 26 % (24-48) 25 % (24-48) Monocytes (%) (Auto) 8 % (0-9) 10 % (0-9) Eosinophils (%) (Auto) 2 % (0-3) 2 % (0-3) Basophils (%) (Auto) 1 % (0-3) 1 % (0-3) Neutrophils # (Auto) 4.7 x10^3/uL (1.8-7.7) 4.4 x10^3/uL (1.8-7.7) Lymphocytes # (Auto) 2.0 x10^3/uL (1.0-4.8) 1.8 x10^3/uL (1.0-4.8) Monocytes # (Auto) 0.6 x10^3/uL (0.0-1.1) 0.7 x10^3/uL (0.0-1.1) Eosinophils # (Auto) 0.1 x10^3/uL (0.0-0.7) 0.1 x10^3/uL (0.0-0.7) Basophils # (Auto) 0.1 x10^3/uL (0.0-0.2) 0.1 x10^3/uL (0.0-0.2) Prothrombin Time 14.3 SEC (11.7-14.0) 15.9 SEC (11.7-14.0) Prothromb Time International Ratio 1.2 (0.8-1.1) 1.3 (0.8-1.1) Activated Partial Thromboplast Time 28 SEC (24-38) 31 SEC (24-38) Sodium Level 138 mmol/L (136-145) 142 mmol/L (136-145) Potassium Level 4.9 mmol/L (3.5-5.1) 4.7 mmol/L (3.5-5.1) Chloride Level 106 mmol/L (98-107) 110 mmol/L (98-107) Carbon Dioxide Level 21 mmol/L (21-32) 22 mmol/L (21-32) Anion Gap 11 (6-14) 10 (6-14) Blood Urea Nitrogen 31 mg/dL (8-26) 27 mg/dL (8-26) Creatinine 1.7 mg/dL (0.7-1.3) 1.6 mg/dL (0.7-1.3) Estimated GFR (Cockcroft-Gault) 39.0 41.8 BUN/Creatinine Ratio 18 (6-20) 17 (6-20) Glucose Level 102 mg/dL (70-99) 92 mg/dL (70-99) Calcium Level 8.0 mg/dL (8.5-10.1) 7.9 mg/dL (8.5-10.1) Magnesium Level 2.5 mg/dL (1.8-2.4) Total Bilirubin 0.4 mg/dL (0.2-1.0) 0.4 mg/dL (0.2-1.0) Aspartate Amino Transf (AST/SGOT) 12 U/L (15-37) 10 U/L (15-37) Alanine Aminotransferase (ALT/SGPT) 14 U/L (16-63) 16 U/L (16-63) Alkaline Phosphatase 46 U/L (46-116) 45 U/L (46-116) Troponin I Quantitative < 0.017 ng/mL (0.000-0.055) 0.046 ng/mL (0.000-0.055) KG-Alb-L-Type Natriuretic Peptide 3833 pg/mL (0-449) Total Protein 5.9 g/dL (6.4-8.2) 5.4 g/dL (6.4-8.2) Albumin 3.0 g/dL (3.4-5.0) 2.9 g/dL (3.4-5.0) Albumin/Globulin Ratio 1.0 (1.0-1.7) 1.2 (1.0-1.7) Ethyl Alcohol Level < 10 mg/dL (0-10) Urine Opiates Screen Neg (NEG) Urine Methadone Screen Neg (NEG) Urine Barbiturates Neg (NEG) Urine Phencyclidine Screen Neg (NEG) Urine Amphetamine/Methamphetamine Neg (NEG) Urine Benzodiazepines Screen Neg (NEG) Urine Cocaine Screen Neg (NEG) Urine Cannabinoids Screen Neg (NEG) Urine Ethyl Alcohol Neg (NEG) Laboratory Tests Test 02/02/20 13:40 02/03/20 04:56 Urine Opiates Screen Neg (NEG) Urine Methadone Screen Neg (NEG) Urine Barbiturates Neg (NEG) Urine Phencyclidine Screen Neg (NEG) Urine Amphetamine/Methamphetamine Neg (NEG) Urine Benzodiazepines Screen Neg (NEG) Urine Cocaine Screen Neg (NEG) Urine Cannabinoids Screen Neg (NEG) Urine Ethyl Alcohol Neg (NEG) White Blood Count 7.1 x10^3/uL (4.0-11.0) Red Blood Count 4.16 x10^6/uL (4.30-5.70) Hemoglobin 13.6 g/dL (13.0-17.5) Hematocrit 40.7 % (39.0-53.0) Mean Corpuscular Volume 98 fL (79-100) Mean Corpuscular Hemoglobin 33 pg (25-35) Mean Corpuscular Hemoglobin Concent 34 g/dL (31-37) Red Cell Distribution Width 13.6 % (11.5-14.5) Platelet Count 224 x10^3/uL (140-400) Neutrophils (%) (Auto) 62 % (31-73) Lymphocytes (%) (Auto) 25 % (24-48) Monocytes (%) (Auto) 10 % (0-9) Eosinophils (%) (Auto) 2 % (0-3) Basophils (%) (Auto) 1 % (0-3) Neutrophils # (Auto) 4.4 x10^3/uL (1.8-7.7) Lymphocytes # (Auto) 1.8 x10^3/uL (1.0-4.8) Monocytes # (Auto) 0.7 x10^3/uL (0.0-1.1) Eosinophils # (Auto) 0.1 x10^3/uL (0.0-0.7) Basophils # (Auto) 0.1 x10^3/uL (0.0-0.2) Prothrombin Time 15.9 SEC (11.7-14.0) Prothromb Time International Ratio 1.3 (0.8-1.1) Activated Partial Thromboplast Time 31 SEC (24-38) Sodium Level 142 mmol/L (136-145) Potassium Level 4.7 mmol/L (3.5-5.1) Chloride Level 110 mmol/L (98-107) Carbon Dioxide Level 22 mmol/L (21-32) Anion Gap 10 (6-14) Blood Urea Nitrogen 27 mg/dL (8-26) Creatinine 1.6 mg/dL (0.7-1.3) Estimated GFR (Cockcroft-Gault) 41.8 BUN/Creatinine Ratio 17 (6-20) Glucose Level 92 mg/dL (70-99) Calcium Level 7.9 mg/dL (8.5-10.1) Total Bilirubin 0.4 mg/dL (0.2-1.0) Aspartate Amino Transf (AST/SGOT) 10 U/L (15-37) Alanine Aminotransferase (ALT/SGPT) 16 U/L (16-63) Alkaline Phosphatase 45 U/L (46-116) Troponin I Quantitative 0.046 ng/mL (0.000-0.055) Total Protein 5.4 g/dL (6.4-8.2) Albumin 2.9 g/dL (3.4-5.0) Albumin/Globulin Ratio 1.2 (1.0-1.7) Medications Current Medications Alteplase, Recombinant 8.5 ml @ 510 mls/hr 1X ONCE IV Last administered on 02/02/20at 11:51; Start 02/02/20 at 11:30; Stop 02/02/20 at 11:31; Status DC Alteplase, Recombinant 76.8 ml @ 76.8 mls/hr Q1H IV Last administered on 02/02/20at 11:50; Start 02/02/20 at 11:30; Stop 02/02/20 at 12:29; Status DC Sodium Chloride 50 ml @ 200 mls/hr 1X ONCE IV Last administered on 02/02/20at 11:52; Start 02/02/20 at 11:30; Stop 02/02/20 at 11:44; Status DC Alteplase, Recombinant 0 ml @ 0 mls/hr Q1H IV ; Start 02/02/20 at 11:30; Stop 02/02/20 at 11:31; Status UNV Sodium Chloride 50 ml @ 0 mls/hr 1X ONCE IV ; Start 02/02/20 at 11:30; Stop 02/02/20 at 11:32; Status DC Labetalol HCl (Normodyne Iv Push) 10 mg PRN Q10MIN PRN IVP HYPERTENSION; Start 02/02/20 at 11:30 Nicardipine HCl 50 mg/Sodium Chloride 250 ml @ 25 mls/hr CONT PRN PRN IV HYPERTENSION; Start 02/02/20 at 11:30 Iohexol (Omnipaque 350 Mg/ml) 75 ml 1X ONCE IV Last administered on 02/02/20at 12:30; Start 02/02/20 at 12:30; Stop 02/02/20 at 12:31; Status DC Info (CONTRAST GIVEN -- Rx MONITORING) 1 each PRN DAILY PRN MC SEE COMMENTS; Start 02/02/20 at 12:30; Stop 02/04/20 at 12:29 Albuterol Sulfate (Ventolin Neb Soln) 2.5 mg PRN Q4HRS PRN NEB SHORTNESS OF BREATH; Start 02/02/20 at 15:45 Ondansetron HCl (Zofran) 4 mg PRN Q4HRS PRN IV NAUSEA/VOMITING; Start 02/02/20 at 18:45 Acetaminophen (Tylenol Supp) 650 mg PRN Q4HRS PRN WV TEMP OVER 100.4F OR MILD PAIN; Start 02/02/20 at 18:45 Bisacodyl (Dulcolax Supp) 10 mg PRN DAILY PRN WV CONSTIPATION; Start 02/02/20 at 18:45 Active Scripts Active Reported Carvedilol (Carvedilol) 6.25 Mg Tablet 6.25 Mg PO BIDWMEALS Simvastatin 20 Mg Tablet 1 Tab PO QHS Vitals/I & O Vital Sign - Last 24 Hours 02/02/20 02/02/20 02/02/20 02/02/20 12:00 12:15 12:30 12:45 Pulse 59 60 61 62 Resp 18 18 18 18 B/P (MAP) 149/67 (94) 149/70 (96) 140/71 (94) 123/58 (79) Pulse Ox 98 98 98 98 O2 Delivery Room Air Room Air Room Air Room Air 02/02/20 02/02/20 02/02/20 02/02/20 13:00 13:15 13:30 13:45 Pulse 64 59 64 57 Resp 18 18 18 18 B/P (MAP) 128/61 (83) 103/59 (74) 92/47 (62) 122/58 (79) Pulse Ox 96 96 97 97 O2 Delivery Room Air Room Air Room Air Room Air 02/02/20 02/02/20 02/02/20 02/02/20 14:00 14:15 14:30 14:45 Pulse 59 59 59 59 Resp 18 18 18 18 B/P (MAP) 121/57 (78) 123/61 (81) 135/65 (88) 137/77 (97) Pulse Ox 97 97 97 97 O2 Delivery Room Air Room Air Room Air Room Air 02/02/20 02/02/20 02/02/20 02/02/20 15:00 15:30 16:00 16:30 Pulse 58 62 65 67 Resp 18 18 18 18 B/P (MAP) 137/97 (110) 143/64 (90) 142/62 (88) 164/72 (102) Pulse Ox 95 95 97 97 O2 Delivery Room Air Room Air Room Air Room Air 02/02/20 02/02/20 02/02/20 02/02/20 17:00 17:30 18:00 18:30 Pulse 61 61 65 73 Resp 18 18 18 18 B/P (MAP) 143/71 (95) 136/66 (89) 142/73 (96) 136/64 (88) Pulse Ox 97 97 97 97 O2 Delivery Room Air Room Air Room Air Room Air 02/02/20 02/02/20 02/02/20 02/02/20 19:30 21:15 21:45 22:00 Temp 97.9 97.9 Pulse 63 63 Resp 18 18 B/P (MAP) 105/56 (72) 135/65 (88) 104/51 (68) Pulse Ox 98 95 O2 Delivery Room Air Room Air Room Air 02/02/20 02/03/20 02/03/20 02/03/20 23:06 00:01 01:00 02:00 Temp 97.7 97.7 Pulse 64 Resp 16 B/P (MAP) 111/56 (74) 96/48 (64) 106/51 (69) 152/66 (94) Pulse Ox 95 O2 Delivery Room Air 02/03/20 02/03/20 02/03/20 02/03/20 03:00 04:00 05:00 06:00 Temp 97.7 97.7 Pulse 65 Resp 18 B/P (MAP) 111/51 (71) 110/54 (72) 97/48 (64) 105/53 (70) Pulse Ox 93 O2 Delivery Room Air 02/03/20 08:00 O2 Delivery Room Air Intake and Output 02/02/20 02/02/20 02/03/20 15:00 23:00 07:00 Intake Total 100 ml Output Total 200 ml Balance -100 ml Justicifation of Admission Dx: Justifications for Admission: Justification of Admission Dx: Yes Stroke - Ischemic: Stroke-Ischemic SARAH HOOKS MD Feb 03, 2020 11:53
--- NOTE | 2020-02-03 14:05 | NUR ---
SS following for discharge planning. SS reviewed pt chart and discussed with pt RN. Pt is from home with spouse and is currently on room air. PT/OT recommended home. Pt had brain MRI and ECHO. SS will continue to follow for discharge planning.
--- NOTE | 2020-02-03 14:05 | RAD ---
BRAIN W/O CONTRAST Date: 02/03/2020 12:00 PM Indication: Stroke. 24hrs after TPA administration Comparison: CT 02/02/2020. Technique: Multiplanar multisequence MRI of the brain was performed without intravenous contrast using the standard protocol. Findings: Focus of restricted diffusion in the left posterior insular cortex. No acute or chronic hemorrhage. The ventricles are normal in size and configuration without hydrocephalus. Mild scattered FLAIR hyperintensities in the subcortical and periventricular deep white matter, a nonspecific finding, most commonly seen with chronic small vessel ischemic disease. Mild cerebral volume loss. Right cerebellar chronic lacunar infarcts. The scalp and calvarium are normal. The pituitary and sella are normal. No Chiari malformation. The visualized upper cervical spine is normal. The visualized orbits and globes are normal. The visualized paranasal sinuses are clear. The mastoid air cells are clear. Normal flow voids within the vertebral, basilar, and internal carotid arteries indicating patency. IMPRESSION: 1. Focus of acute infarct in the left insula. No acute hemorrhage. 2. Right cerebellar chronic lacunar infarcts. 3. Mild chronic small vessel ischemic disease and mild cerebral volume loss. FOR INTERNAL CODING PURPOSES Critical result: Findings discussed with the patient's nurse at 02/03/2020 2:02 PM. RESULT CODE: (C) Electronically signed by: Pietro Rivera MD (02/03/2020 2:02 PM) [id number]
[2020-02-03] MEDS ORDERED: ASPIRIN 325 MG TABLET PO SCH (15:00)
[2020-02-03] MEDS ORDERED: ASPIRIN CHEWABLE 81 MG TABLET. PO SCH (16:00)
[2020-02-03] MEDS: CLOPIDOGREL BISULFATE 75 MG TABLET PO SCH (16:26)
--- NOTE | 2020-02-03 16:38 | CARD ---
MR#: [id number] Date of Study: 02/03/2020 Ordering Physician: TYSON THOMASON, Referring Physician: TYSON THOMASON Tech: Melissa Lara RDCS APPROVED REPORT EXAM: Two-dimensional and M-mode echocardiogram with Doppler and color Doppler. Other Information Quality : Fair INDICATION CVA/TIA Recent Echo [place], [place]- January 2020 2D DIMENSIONS Left Atrium(2D)3.8 (1.6-4.0cm)IVSd1.4 (0.7-1.1cm) Aortic Root(2D)2.9 (2.0-3.7cm)LVDd5.1 (3.9-5.9cm) LVOT Diameter2.3 (1.8-2.4cm)PWd1.4 (0.7-1.1cm) LVDs5.8 (2.5-4.0cm)FS (%) 7.0 % SV44.3 mlLVEF(%)15.0 (>50%) Aortic Valve AoV Peak Javid.143.5cm/sAoV VTI24.3cm AO Peak GR.8.2mmHgLVOT Peak Javid.75.5cm/s AO Mean GR.4mmHgAVA (VMAX)2.26cm2 CHIKA (VTI)2.97pu4VB P 1/2 [id number] Mitral Valve MV E Rhmhszsz17.1cm/sMV DECEL WGBU277in MV A Sswabpys26.1cm/sE/A Ratio0.5 Tricuspid Valve TR P. Iadplbxc653qc/sRAP [id number] TR Peak Gr.49dsOmZMAB82xuUw LEFT VENTRICLE The left ventricle is normal size. There is mild concentric left ventricular hypertrophy. Left ventri sanjana systolic function is severely impaired. The Ejection Fraction is 15-20%. Septal motion consistent with conduction abnormality. There is severe global hypokinesis of the left ventricle. The septal wa ll is dyskinetic. Transmitral Doppler flow pattern is Grade II-pseudonormal filling dynamics. RIGHT VENTRICLE The right ventricle is normal size. The right ventricular systolic function is normal. ATRIA The left atrium size is normal. The right atrium size is normal. The interatrial septum is intact wit h no evidence for an atrial septal defect or patent foramen ovale as noted on 2-D or Doppler imaging. AORTIC VALVE The aortic valve is calcified but opens well. Doppler and Color Flow revealed mild aortic regurgitati on. There is no significant aortic valvular stenosis. MITRAL VALVE The mitral valve is calcified but opens well. Mitral annular calcification is mild. There is no evide nce of mitral valve prolapse. There is no mitral valve stenosis. Doppler and Color-flow revealed mild to moderate mitral regurgitation. TRICUSPID VALVE The tricuspid valve is normal in structure and function. Doppler and Color Flow revealed trace tricus pid regurgitation. The PA pressure was estimated at 29 mmHg. There is no tricuspid valve stenosis. PULMONIC VALVE The pulmonic valve is not well visualized. Doppler and Color Flow revealed no pulmonic valvular regur gitation. There is no pulmonic valvular stenosis. GREAT VESSELS The aortic root is normal in size. The ascending aorta is mildly dilated at 3.7 cm. The IVC is normal in size and collapses >50% with inspiration. PERICARDIAL EFFUSION There is no evidence of significant pericardial effusion. Critical Notification Critical Value: No <Conclusion> The left ventricle is normal size. Left ventricle systolic function is severely impaired. The Ejection Fraction is 15-20%. There is severe global hypokinesis of the left ventricle. The septal wall is dyskinetic. There is mild concentric left ventricular hypertrophy. Doppler and Color Flow revealed mild aortic regurgitation. There is no significant aortic valvular stenosis. Doppler and Color-flow revealed mild to moderate mitral regurgitation. Doppler and Color Flow revealed trace tricuspid regurgitation. The PA pressure was estimated at 29 mmHg. The ascending aorta is mildly dilated at 3.7 cm. Signed by : Jayesh Betancourt MD Electronically Approved : 02/03/2020 16:37:50
--- NOTE | 2020-02-03 16:50 | EKG ---
[facility] [address] [place] [address] Test Date: 2020-02-02 Test Time: 11:07:19 Pat Name: CARLOTA BALTAZAR Department: Room: 260 1 Gender: M [employer]: : 1940 Requested By: LYN ROSE Order Number: [id number] Reading MD: Ian Walker Measurements Intervals [place] Rate: 65 P: 19 SC: 206 QRS: -18 QRSD: 178 T: 172 QT: 446 QTc: 465 Interpretive Statements SINUS RHYTHM LEFTWARD AXIS LEFT BUNDLE BRANCH BLOCK ABNORMAL ECG RI6.01 No previous ECG available for comparison Electronically Signed On 02-04-2020 10:41:46 [employer]AK[employer] APPRENTICE by Ian Walker
[2020-02-03] MEDS: CARVEDILOL 6.25 MG TABLET. PO SCH (17:58)
[2020-02-03] MEDS ORDERED: ALBU2.5V8 INH (20:34)
[2020-02-03] MEDS ORDERED: ASPI-630 PO (20:47)
[2020-02-03] MEDS ORDERED: SIMV20TA18 PO (20:47)
[2020-02-03] MEDS ORDERED: MULT-121 PO (20:47)
[2020-02-03] MEDS ORDERED: FLUT1DIS IH (20:47)
[2020-02-03] MEDS ORDERED: BUDE10.2 IH (20:47)
[2020-02-03] MEDS ORDERED: FINA5TAB4 PO (20:47)
[2020-02-03] MEDS ORDERED: ALLO300T PO (20:47)
[2020-02-03] MEDS ORDERED: PSYL0.5215 PO (20:47)
[2020-02-03] MEDS ORDERED: FURO40TA4 PO (20:47)
[2020-02-03] MEDS ORDERED: OMEG1CAP50 PO (20:47)
[2020-02-03] MEDS ORDERED: NON FORMULARY ITEM (Budesonide/Formoterol Fumarate (Symbicort 160-4.5 Mcg Inhaler) 2 PUFF) IH SCH (21:00)
[2020-02-03] MEDS ORDERED: SIMVASTATIN 20 MG TABLET PO SCH ×2 (21:00)
[2020-02-03] MEDS ORDERED: NON FORMULARY ITEM (Fluticasone/Salmeterol (Advair 100-50 Diskus) 1 PUFF) IH SCH (21:00)
[2020-02-03] MEDS ORDERED: ALBUTEROL SULFATE 2.5 MG/3 ML NEBU. INH SCH (21:00)
[2020-02-04] MEDS ORDERED: ALBUTEROL SULFATE 2.5 MG/3 ML NEBU. NEB SCH
[2020-02-04 02:50] VITALS: BP 126/57
[2020-02-04] MEDS ORDERED: ALBUTEROL SULFATE 2.5 MG/3 ML NEBU. NEB PRN (03:00)
[2020-02-04 07:00] VITALS: BP 127/64
[2020-02-04] MEDS ORDERED: BUDESONIDE 0.5 MG/2 ML NEBU. NEB SCH (08:00)
[2020-02-04] MEDS ORDERED: IPRATRPIUM/ALBUTEROL 0.5/2.5MG 3 ML NEBU. NEB SCH (08:00)
[2020-02-04] MEDS ORDERED: ALLOPURINOL 300 MG TABLET. PO SCH (09:00)
[2020-02-04] MEDS ORDERED: ASPIRIN CHEWABLE 81 MG TABLET. PO SCH (09:00)
[2020-02-04] MEDS ORDERED: FINASTERIDE 5 MG TABLET. PO SCH (09:00)
[2020-02-04] MEDS ORDERED: MULTIVITAMIN with MINERAL TABLET. PO SCH (09:00)
[2020-02-04] MEDS ORDERED: PSYLLIUM HUSK (SUGAR FREE) 1 PKT PACKET PO SCH (09:00)
[2020-02-04] MEDS ORDERED: OMEGA-3 FATTY ACIDS/FISH OIL 1,000 MG CAPSULE. PO SCH (09:00)
--- NOTE | 2020-02-04 09:08 | PDOC ---
PROGRESS NOTES Date of Service DATE: 02/04/20 TIME: 09:04 Assessment Problems Medical Problems: (1) Broca's aphasia Status: Acute (2) CVA (cerebral vascular accident) Status: Acute Left insula stroke, status-post alteplase, all symptoms and signs have resolved. Negative CT angiogram. Failure on aspirin 81 mg daily Coronary artery disease, congestive heart failure, hyperlipidemia, hypertension, COPD, asthma, benign prostatic hyperplasia, gout, ex-smoker Plan Check lipids On statin Resumed aspirin, added clopidogrel Discussed with patient and his Aim for discharge later today Subjective No complaints Objective Vital Signs Date Time Temp Pulse Resp B/P (MAP) Pulse Ox O2 Delivery O2 Flow Rate FiO2 02/04/20 08:32 96 Room Air 02/04/20 02:50 97.8 63 18 126/57 (80) 97.8 02/03/20 20:39 2.0 Intake and Output 02/04/20 07:00 Intake Total 580 ml Output Total 300 ml Balance 280 ml Intake Oral 580 ml Output Urine Total 300 ml # Bowel Movements 1 PHYSICAL EXAM Alert. Oriented to time, place and person. PERRL. EOMI. CN: no focal findings. Muscle tone: normal. Muscle strength: 5/5 DTR: 1+ Plantar reflex: Flexor Gait: Normal. Sensory exam: no abnormal findings. No cerebellar signs elicited. Review of Relevant I have reviewed the following items delroy (where applicable) has been applied. Labs Laboratory Tests Test 02/02/20 11:07 02/02/20 13:40 02/03/20 04:56 White Blood Count 7.6 x10^3/uL (4.0-11.0) 7.1 x10^3/uL (4.0-11.0) Red Blood Count 4.39 x10^6/uL (4.30-5.70) 4.16 x10^6/uL (4.30-5.70) Hemoglobin 14.5 g/dL (13.0-17.5) 13.6 g/dL (13.0-17.5) Hematocrit 43.0 % (39.0-53.0) 40.7 % (39.0-53.0) Mean Corpuscular Volume 98 fL (79-100) 98 fL (79-100) Mean Corpuscular Hemoglobin 33 pg (25-35) 33 pg (25-35) Mean Corpuscular Hemoglobin Concent 34 g/dL (31-37) 34 g/dL (31-37) Red Cell Distribution Width 14.0 % (11.5-14.5) 13.6 % (11.5-14.5) Platelet Count 252 x10^3/uL (140-400) 224 x10^3/uL (140-400) Neutrophils (%) (Auto) 62 % (31-73) 62 % (31-73) Lymphocytes (%) (Auto) 26 % (24-48) 25 % (24-48) Monocytes (%) (Auto) 8 % (0-9) 10 % (0-9) Eosinophils (%) (Auto) 2 % (0-3) 2 % (0-3) Basophils (%) (Auto) 1 % (0-3) 1 % (0-3) Neutrophils # (Auto) 4.7 x10^3/uL (1.8-7.7) 4.4 x10^3/uL (1.8-7.7) Lymphocytes # (Auto) 2.0 x10^3/uL (1.0-4.8) 1.8 x10^3/uL (1.0-4.8) Monocytes # (Auto) 0.6 x10^3/uL (0.0-1.1) 0.7 x10^3/uL (0.0-1.1) Eosinophils # (Auto) 0.1 x10^3/uL (0.0-0.7) 0.1 x10^3/uL (0.0-0.7) Basophils # (Auto) 0.1 x10^3/uL (0.0-0.2) 0.1 x10^3/uL (0.0-0.2) Prothrombin Time 14.3 SEC (11.7-14.0) 15.9 SEC (11.7-14.0) Prothromb Time International Ratio 1.2 (0.8-1.1) 1.3 (0.8-1.1) Activated Partial Thromboplast Time 28 SEC (24-38) 31 SEC (24-38) Sodium Level 138 mmol/L (136-145) 142 mmol/L (136-145) Potassium Level 4.9 mmol/L (3.5-5.1) 4.7 mmol/L (3.5-5.1) Chloride Level 106 mmol/L (98-107) 110 mmol/L (98-107) Carbon Dioxide Level 21 mmol/L (21-32) 22 mmol/L (21-32) Anion Gap 11 (6-14) 10 (6-14) Blood Urea Nitrogen 31 mg/dL (8-26) 27 mg/dL (8-26) Creatinine 1.7 mg/dL (0.7-1.3) 1.6 mg/dL (0.7-1.3) Estimated GFR (Cockcroft-Gault) 39.0 41.8 BUN/Creatinine Ratio 18 (6-20) 17 (6-20) Glucose Level 102 mg/dL (70-99) 92 mg/dL (70-99) Calcium Level 8.0 mg/dL (8.5-10.1) 7.9 mg/dL (8.5-10.1) Magnesium Level 2.5 mg/dL (1.8-2.4) Total Bilirubin 0.4 mg/dL (0.2-1.0) 0.4 mg/dL (0.2-1.0) Aspartate Amino Transf (AST/SGOT) 12 U/L (15-37) 10 U/L (15-37) Alanine Aminotransferase (ALT/SGPT) 14 U/L (16-63) 16 U/L (16-63) Alkaline Phosphatase 46 U/L (46-116) 45 U/L (46-116) Troponin I Quantitative < 0.017 ng/mL (0.000-0.055) 0.046 ng/mL (0.000-0.055) JK-Wno-U-Type Natriuretic Peptide 3833 pg/mL (0-449) Total Protein 5.9 g/dL (6.4-8.2) 5.4 g/dL (6.4-8.2) Albumin 3.0 g/dL (3.4-5.0) 2.9 g/dL (3.4-5.0) Albumin/Globulin Ratio 1.0 (1.0-1.7) 1.2 (1.0-1.7) Ethyl Alcohol Level < 10 mg/dL (0-10) Urine Opiates Screen Neg (NEG) Urine Methadone Screen Neg (NEG) Urine Barbiturates Neg (NEG) Urine Phencyclidine Screen Neg (NEG) Urine Amphetamine/Methamphetamine Neg (NEG) Urine Benzodiazepines Screen Neg (NEG) Urine Cocaine Screen Neg (NEG) Urine Cannabinoids Screen Neg (NEG) Urine Ethyl Alcohol Neg (NEG) Medications Current Medications Alteplase, Recombinant 8.5 ml @ 510 mls/hr 1X ONCE IV Last administered on 02/02/20at 11:51; Start 02/02/20 at 11:30; Stop 02/02/20 at 11:31; Status DC Alteplase, Recombinant 76.8 ml @ 76.8 mls/hr Q1H IV Last administered on 02/02/20at 11:50; Start 02/02/20 at 11:30; Stop 02/02/20 at 12:29; Status DC Sodium Chloride 50 ml @ 200 mls/hr 1X ONCE IV Last administered on 02/02/20at 11:52; Start 02/02/20 at 11:30; Stop 02/02/20 at 11:44; Status DC Alteplase, Recombinant 0 ml @ 0 mls/hr Q1H IV ; Start 02/02/20 at 11:30; Stop 02/02/20 at 11:31; Status UNV Sodium Chloride 50 ml @ 0 mls/hr 1X ONCE IV ; Start 02/02/20 at 11:30; Stop 02/02/20 at 11:32; Status DC Labetalol HCl (Normodyne Iv Push) 10 mg PRN Q10MIN PRN IVP HYPERTENSION; Start 02/02/20 at 11:30 Nicardipine HCl 50 mg/Sodium Chloride 250 ml @ 25 mls/hr CONT PRN PRN IV HYPERTENSION; Start 02/02/20 at 11:30 Iohexol (Omnipaque 350 Mg/ml) 75 ml 1X ONCE IV Last administered on 02/02/20at 12:30; Start 02/02/20 at 12:30; Stop 02/02/20 at 12:31; Status DC Info (CONTRAST GIVEN -- Rx MONITORING) 1 each PRN DAILY PRN MC SEE COMMENTS; Start 02/02/20 at 12:30; Stop 02/04/20 at 12:29 Albuterol Sulfate (Ventolin Neb Soln) 2.5 mg PRN Q4HRS PRN NEB SHORTNESS OF BREATH Last administered on 02/03/20at 20:39; Start 02/02/20 at 15:45 Ondansetron HCl (Zofran) 4 mg PRN Q4HRS PRN IV NAUSEA/VOMITING; Start 02/02/20 at 18:45 Acetaminophen (Tylenol Supp) 650 mg PRN Q4HRS PRN WI TEMP OVER 100.4F OR MILD PAIN; Start 02/02/20 at 18:45 Bisacodyl (Dulcolax Supp) 10 mg PRN DAILY PRN WI CONSTIPATION; Start 02/02/20 at 18:45 Aspirin (Denny Aspirin) 81 mg DAILYWBKFT PO ; Start 02/03/20 at 15:00; Stop 02/03/20 at 15:40; Status DC Clopidogrel Bisulfate (Plavix) 75 mg DAILYWBKFT PO Last administered on 02/03/20at 16:26; Start 02/03/20 at 15:00 Carvedilol (Coreg) 6.25 mg BIDWMEALS PO Last administered on 02/03/20at 17:58; Start 02/03/20 at 17:00 Simvastatin (Zocor) 20 mg QHS PO ; Start 02/03/20 at 21:00; Stop 02/03/20 at 16:55; Status DC Aspirin (Aspirin Chewable) 81 mg DAILYWBKFT PO Last administered on 02/03/20at 16:26; Start 02/03/20 at 16:00; Stop 02/03/20 at 21:25; Status DC Simvastatin (Zocor) 40 mg QHS PO Last administered on 02/03/20at 21:46; Start 02/03/20 at 21:00 Albuterol Sulfate (Ventolin Neb Soln) 3 mg QID INH ; Start 02/03/20 at 21:00; Stop 02/03/20 at 21:26; Status DC Allopurinol (Zyloprim) 300 mg DAILY PO ; Start 02/04/20 at 09:00 Aspirin (Aspirin Chewable) 81 mg DAILY PO ; Start 02/04/20 at 09:00 Finasteride (Proscar) 5 mg DAILY PO ; Start 02/04/20 at 09:00 Fish Oil (Fish Oil) 1,000 mg DAILY PO ; Start 02/04/20 at 09:00 Non-Formulary Medication (Budesonide/ Formoterol Fumarate (Symbicort 160-4.5 Mcg Inhaler)) 2 puff BID IH ; Start 02/03/20 at 21:00; Status UNV Non-Formulary Medication (Fluticasone/ Salmeterol (Advair 100-50 Diskus)) 1 puff BID IH ; Start 02/03/20 at 21:00; Status UNV Multivitamins (Thera M Plus) 1 tab DAILY PO ; Start 02/04/20 at 09:00 Psyllium Hydrophilic Mucilloid (Metamucil Fiber Packet) 1 pkt DAILY PO ; Start 02/04/20 at 09:00 Albuterol Sulfate (Ventolin Neb Soln) 2.5 mg Q6HRS NEB ; Start 02/04/20 at 00:00; Stop 02/04/20 at 02:55; Status DC Budesonide (Pulmicort) 0.5 mg RTBID NEB Last administered on 02/04/20at 08:25; Start 02/04/20 at 08:00 Albuterol/ Ipratropium (Duoneb) 3 ml RTQID NEB Last administered on 02/04/20at 08:24; Start 02/04/20 at 08:00 Albuterol Sulfate (Ventolin Neb Soln) 2.5 mg PRN Q6HRS PRN NEB WHEEZING; Start 02/04/20 at 03:00 Active Scripts Active Reported Symbicort 160-4.5 Mcg Inhaler (Budesonide/Formoterol Fumarate) 10.2 Gm Hfa.aer.ad 2 Puff IH BID Metamucil (Psyllium Husk) 0.52 Gm Capsule 1 Cap PO DAILY 30 Days Furosemide 40 Mg Tablet 1 Tab PO DAILY 1 Days Allopurinol 300 Mg Tablet 300 Mg PO DAILY Multiple Vitamins (Multivitamin) 1 Each Tablet 1 Tab PO DAILY 30 Days Finasteride 5 Mg Tablet 5 Tab PO DAILY Advair 100-50 Diskus (Fluticasone/Salmeterol) 1 Each Disk.w.dev 1 Puff IH BID Fish Oil 1,000 Mg Softgel ([place]-3 Fatty Acids/Fish Oil) 1 Each Capsule 1 Cap PO DAILY 30 Days Aspirin 81 Mg Tab.chew 81 Mg PO DAILY Proair Hfa (Albuterol Sulfate) 8.5 Gm Hfa.aer.ad 1 Puff INH QID Carvedilol (Carvedilol) 6.25 Mg Tablet 6.25 Mg PO BIDWMEALS Simvastatin 20 Mg Tablet 1 Tab PO QHS Vitals/I & O Vital Sign - Last 24 Hours 02/03/20 02/03/20 02/03/20 02/03/20 15:00 17:58 19:42 20:00 Temp 97.7 98.4 97.7 98.4 Pulse 64 68 62 Resp 20 18 B/P (MAP) 127/59 (81) 156/71 121/60 (80) Pulse Ox 97 95 O2 Delivery Room Air Room Air Room Air 02/03/20 02/03/20 02/04/20 02/04/20 20:39 22:51 02:50 08:27 Temp 97.7 97.8 97.7 97.8 Pulse 68 63 Resp 18 18 B/P (MAP) 143/66 (91) 126/57 (80) Pulse Ox 96 96 100 96 O2 Delivery Room Air Room Air Room Air O2 Flow Rate 2.0 02/04/20 08:32 Pulse Ox 96 O2 Delivery Room Air Intake and Output 02/03/20 02/03/20 02/04/20 15:00 23:00 07:00 Intake Total 0 ml 580 ml 0 ml Output Total 300 ml Balance 0 ml 280 ml 0 ml Images BRAIN W/O CONTRAST Date: 02/03/2020 12:00 PM Indication: Stroke. 24hrs after TPA administration Comparison: CT 02/02/2020. Technique: Multiplanar multisequence MRI of the brain was performed without intravenous contrast using the standard protocol. Findings: Focus of restricted diffusion in the left posterior insular cortex. No acute or chronic hemorrhage. The ventricles are normal in size and configuration without hydrocephalus. Mild scattered FLAIR hyperintensities in the subcortical and periventricular deep white matter, a nonspecific finding, most commonly seen with chronic small vessel ischemic disease. Mild cerebral volume loss. Right cerebellar chronic lacunar infarcts. The scalp and calvarium are normal. The pituitary and sella are normal. No Chiari malformation. The visualized upper cervical spine is normal. The visualized orbits and globes are normal. The visualized paranasal sinuses are clear. The mastoid air cells are clear. Normal flow voids within the vertebral, basilar, and internal carotid arteries indicating patency. IMPRESSION: 1. Focus of acute infarct in the left insula. No acute hemorrhage. 2. Right cerebellar chronic lacunar infarcts. 3. Mild chronic small vessel ischemic disease and mild cerebral volume loss. Echo: LEFT VENTRICLE The left ventricle is normal size. There is mild concentric left ventricular hypertrophy. Left ventricle systolic function is severely impaired. The Ejection Fraction is 15-20%. Septal motion consistent with conduction abnormality. There is severe global hypokinesis of the left ventricle. The septal wall is dyskinetic. Transmitral Doppler flow pattern is Grade II-pseudonormal filling dynamics. RIGHT VENTRICLE The right ventricle is normal size. The right ventricular systolic function is normal. ATRIA The left atrium size is normal. The right atrium size is normal. The interatrial septum is intact with no evidence for an atrial septal defect or patent foramen ovale as noted on 2-D or Doppler imaging. AORTIC VALVE The aortic valve is calcified but opens well. Doppler and Color Flow revealed mild aortic regurgitation. There is no significant aortic valvular stenosis. MITRAL VALVE The mitral valve is calcified but opens well. Mitral annular calcification is mild. There is no evidence of mitral valve prolapse. There is no mitral valve stenosis. Doppler and Color-flow revealed mild to moderate mitral regurgitation. TRICUSPID VALVE The tricuspid valve is normal in structure and function. Doppler and Color Flow revealed trace tricuspid regurgitation. The PA pressure was estimated at 29 mmHg. There is no tricuspid valve stenosis. PULMONIC VALVE The pulmonic valve is not well visualized. Doppler and Color Flow revealed no pulmonic valvular regurgitation. There is no pulmonic valvular stenosis. GREAT VESSELS The aortic root is normal in size. The ascending aorta is mildly dilated at 3.7 cm. The IVC is normal in size and collapses >50% with inspiration. PERICARDIAL EFFUSION There is no evidence of significant pericardial effusion. Critical Notification Critical Value: No <Conclusion> The left ventricle is normal size. Left ventricle systolic function is severely impaired. The Ejection Fraction is 15-20%. There is severe global hypokinesis of the left ventricle. The septal wall is dyskinetic. There is mild concentric left ventricular hypertrophy. Doppler and Color Flow revealed mild aortic regurgitation. There is no significant aortic valvular stenosis. Doppler and Color-flow revealed mild to moderate mitral regurgitation. Doppler and Color Flow revealed trace tricuspid regurgitation. The PA pressure was estimated at 29 mmHg. The ascending aorta is mildly dilated at 3.7 cm. Justicifation of Admission Dx: Justifications for Admission: Justification of Admission Dx: Yes Stroke - Ischemic: Stroke-Ischemic MONET KING MD Feb 04, 2020 09:08
[2020-02-04] MEDS: CLOPIDOGREL BISULFATE 75 MG TABLET PO SCH (09:12)
[2020-02-04] MEDS: CARVEDILOL 6.25 MG TABLET. PO SCH (09:12)
--- NOTE | 2020-02-04 09:56 | PDOC ---
PROGRESS NOTES Date of Service: DATE: 02/04/20 TIME: 09:[address] Head: No intracranial hemorrhage, mass, hydrocephalus or infarction. No acute ischemic change evident. Orbits, mastoids and bones are unremarkable. IMPRESSION: No acute abnormality CTA neck: Mild plaquing of the ostia the vessels from the aortic arch without stenosis. Tortuosity of the vessels at the thoracic inlet. Left vertebral artery is dominant. No plaquing, dissection, thrombus, stenosis or occlusion the vertebral arteries. Left carotid artery demonstrates partially calcified plaque at the bifurcation contributing to 10 percent stenosis. No dissection, thrombus or occlusion. Right carotid artery demonstrates partially calcified plaque at the bifurcation contributing to 40 percent stenosis at the termination of the common carotid and origin of the internal carotid artery. No dissection, thrombus or occlusion. Cervical disc osteophytes and uncovertebral spurs with spinal canal and neural foraminal stenoses. CT head findings: Mild calcified plaque cavernous carotid arteries without stenosis. No large vessel occlusion. No thrombus, significant stenosis, occlusion or aneurysm. Patent left posterior indicating artery. Patent anterior to indicating artery. Right anterior cerebral artery A1 segment is hypoplastic. IMPRESSION: 1. No large vessel occlusion. 2. Cervical carotid artery plaquing without significant stenosis. VTE Prophylaxis Ordered VTE Prophylaxis Devices: Yes VTE Pharmacological Prophylaxi: Yes DISCHARGE DX PATIENT INSISTS ON DISCHARGE TODAY, not ideal A/P: acute ischemic stroke Aphasia (Broca's) - has baseline some word finding difficulty, but vastly improved since initial evaluation. Likely prevented early CVA. Neuro consulted Right sided weakness - Resolved s/p tPA CAD s/p x2 MIRLANDE (10+ years) - on plavix. Follows in [place], [place]. Hold antiplatelets after tPA administration. Will reconcile his other meds recent Chronic systolic CHF (EF 40%) - stable currently, seems euvolemic, will obtain [facility] [address] records [id number] Ejection Fraction is 15-20%. There is severe global hypokinesis of the left ventricle. The septal wall is dyskinetic. There is mild concentric left ventricular hypertrophy. Doppler and Color Flow revealed mild aortic regurgitation. There is no significant aortic valvular stenosis. Doppler and Color-flow revealed mild to moderate mitral regurgitation. HTN - PRN nicardipine/labetalol for SBP < 180mmHg HLD - statin BPH - flomax COPD - prn albuterol Renal mass s/p RFA - will f/u with records SUSIE - baseline Cr unknown, plan icu bed FEN - swallow evaluation PPX - TPA given CODE - DNR/DNI Dispo - inpatient ICU NEPHROLOGY CONSULT pending ideal d/c not today but patient insists he must leave to vote in the election d/c planning 40 minutes Justifications for Admission Justifications for Admission Other Justification History of Present Illness History of Present Illness Identification/Chief Complaint Chief Complaint Garbled speech, right arm and leg weakness Source Source: Caregiver, Chart review, Patient History of Present Illness History of Present Illness Mr Hamm is an 79 yo M w/ PMHx COPD, CAD s/p x2 MIRLANDE (10+ years) on plavix, renal mass s/p RFA, chronic systolic CHF (EF 40%), HTN, BPH, and HLD who presents to the ED brought in by EMS as a code stroke activation, last known well around 1015 AM this morning. EMS reports patient was picked up at a nearby [employer] with sudden onset slurred speech and right-sided weakness- witnessed event/pt slumped to right side, not fall or hit his head. EMS reported patient had right-sided flaccidity and aphasia with left lower facial droop. Glucose within normal limits. On no anticoagulants. EKG with NSR 65 bpm, left axis deviation, QTC 465, ID [id number], first-degree AV block, left bundle branch block present, T wave inversions V4 through V6, 1, 2 and aVL, no prior EKG for comparison CXR with borderline cardiomegaly no acute abnormalities. CT head with no acute hemorrhage. CT angiogram head and neck with bilateral carotid plaques no thrombi noted. Labs significant for WBC 7.6, Hb 14.5, platelets 252, INR 1.2, PTT 28, calcium 8, NA 138, K4.9, BUN 31, CR 1.7, glucose 102. NIHSS 6 on admit with ED. Contacted by ED for admission and we discussed with neurology, no absolute contraindications to tPA, which was administered with improvement in symptoms to NIHSS of 1 upon my evaluation. Seen in ED bedside with his and [id number] (he and his are from [facility] in town visiting his son and [id number] who are the owners of a liquor store where this incident occurred.) His and [id number] note that at baseline he does have some occasional word-finding difficulty. Admitted to ICU for post-tPA care., now in cvc bed Past Medical History Cardiovascular: CAD, CHF, HTN, Hyperlipidemia Pulmonary: COPD Renal/: Benign prostatic enlarg. Past Surgical History Past Surgical History: Cystoscopy Family History Family History: Cancer, High Cholestrol, Hypertension Social History Smoke: Quit ALCOHOL: occassional Drugs: None Vitals Vitals Vital Signs Date Time Temp Pulse Resp B/P (MAP) Pulse Ox O2 Delivery O2 Flow Rate FiO2 02/04/20 09:12 63 126/57 02/04/20 08:32 96 Room Air 02/04/20 07:00 98.1 19 98.1 02/03/20 20:39 2.0 Physical Exam General: Alert, Oriented X3, Cooperative, No acute distress Heart: Regular rate, Normal S1, Normal S2, Other (2/6 systolic murmur ) Lungs: Clear Abdomen: Soft, No tenderness Extremities: No cyanosis, No edema, Normal pulses Skin: No significant lesion Labs LABS 2D DIMENSIONS Left Atrium(2D) 3.8 (1.6-4.0cm) IVSd 1.4 (0.7-1.1cm) Aortic Root(2D) 2.9 (2.0-3.7cm) LVDd 5.1 (3.9-5.9cm) LVOT Diameter 2.3 (1.8-2.4cm) PWd 1.4 (0.7-1.1cm) LVDs 5.8 (2.5-4.0cm) FS (%) 7.0 % SV 44.3 ml LVEF(%) 15.0 (>50%) Aortic Valve AoV Peak Javid. 143.5cm/s AoV VTI 24.3cm AO Peak GR. 8.2mmHg LVOT Peak Javid. 75.5cm/s AO Mean GR. 4mmHg CHIKA (VMAX) 2.26cm2 CHIKA (VTI) 2.10cm2 AI P 1/2 Time 601ms Mitral Valve MV E Velocity 39.1cm/s MV DECEL TIME 234ms MV A Velocity 79.1cm/s E/A Ratio 0.5 Tricuspid Valve TR P. Velocity 256cm/s RAP ESTIMATE 3mmHg TR Peak Gr. 26mmHg RVSP 29mmHg LEFT VENTRICLE The left ventricle is normal size. There is mild concentric left ventricular hypertrophy. Left ventricle systolic function is severely impaired. The Ejection Fraction is 15-20%. Septal motion consistent with conduction abnormality. There is severe global hypokinesis of the left ventricle. The septal wall is dyskinetic. Transmitral Doppler flow pattern is Grade II-pseudonormal filling dynamics. RIGHT VENTRICLE The right ventricle is normal size. The right ventricular systolic function is normal. ATRIA The left atrium size is normal. The right atrium size is normal. The interatrial septum is intact with no evidence for an atrial septal defect or patent foramen ovale as noted on 2-D or Doppler imaging. AORTIC VALVE The aortic valve is calcified but opens well. Doppler and Color Flow revealed mild aortic regurgitation. There is no significant aortic valvular stenosis. MITRAL VALVE The mitral valve is calcified but opens well. Mitral annular calcification is mild. There is no evidence of mitral valve prolapse. There is no mitral valve stenosis. Doppler and Color-flow revealed mild to moderate mitral regurgitation. TRICUSPID VALVE The tricuspid valve is normal in structure and function. Doppler and Color Flow revealed trace tricuspid regurgitation. The PA pressure was estimated at 29 mmHg. There is no tricuspid valve stenosis. PULMONIC VALVE The pulmonic valve is not well visualized. Doppler and Color Flow revealed no pulmonic valvular regurgitation. There is no pulmonic valvular stenosis. GREAT VESSELS The aortic root is normal in size. The ascending aorta is mildly dilated at 3.7 cm. The IVC is normal in size and collapses >50% with inspiration. PERICARDIAL EFFUSION There is no evidence of significant pericardial effusion. Critical Notification Critical Value: No <Conclusion> The left ventricle is normal size. Left ventricle systolic function is severely impaired. The Ejection Fraction is 15-20%. There is severe global hypokinesis of the left ventricle. The septal wall is dyskinetic. There is mild concentric left ventricular hypertrophy. Doppler and Color Flow revealed mild aortic regurgitation. There is no significant aortic valvular stenosis. Doppler and Color-flow revealed mild to moderate mitral regurgitation. Doppler and Color Flow revealed trace tricuspid regurgitation. The PA pressure was estimated at 29 mmHg. The ascending aorta is mildly dilated at 3.7 cm. Signed by : Lorenza Betancourt MD Electronically Approved : 02/03/2020 16:37:50 DICTATED and SIGNED BY: LORENZA EBTANCOURT MD DATE: 02/03/20 1110 Assessment and Plan Assessmemt and Plan Problems Medical Problems: (1) Broca's aphasia Status: Acute (2) CVA (cerebral vascular accident) Status: Acute Comment Review of Relevant I have reviewed the following items delroy (where applicable) has been applied. Labs Laboratory Tests Test 02/02/20 11:07 02/02/20 13:40 02/03/20 04:56 White Blood Count 7.6 x10^3/uL (4.0-11.0) 7.1 x10^3/uL (4.0-11.0) Red Blood Count 4.39 x10^6/uL (4.30-5.70) 4.16 x10^6/uL (4.30-5.70) Hemoglobin 14.5 g/dL (13.0-17.5) 13.6 g/dL (13.0-17.5) Hematocrit 43.0 % (39.0-53.0) 40.7 % (39.0-53.0) Mean Corpuscular Volume 98 fL (79-100) 98 fL (79-100) Mean Corpuscular Hemoglobin 33 pg (25-35) 33 pg (25-35) Mean Corpuscular Hemoglobin Concent 34 g/dL (31-37) 34 g/dL (31-37) Red Cell Distribution Width 14.0 % (11.5-14.5) 13.6 % (11.5-14.5) Platelet Count 252 x10^3/uL (140-400) 224 x10^3/uL (140-400) Neutrophils (%) (Auto) 62 % (31-73) 62 % (31-73) Lymphocytes (%) (Auto) 26 % (24-48) 25 % (24-48) Monocytes (%) (Auto) 8 % (0-9) 10 % (0-9) Eosinophils (%) (Auto) 2 % (0-3) 2 % (0-3) Basophils (%) (Auto) 1 % (0-3) 1 % (0-3) Neutrophils # (Auto) 4.7 x10^3/uL (1.8-7.7) 4.4 x10^3/uL (1.8-7.7) Lymphocytes # (Auto) 2.0 x10^3/uL (1.0-4.8) 1.8 x10^3/uL (1.0-4.8) Monocytes # (Auto) 0.6 x10^3/uL (0.0-1.1) 0.7 x10^3/uL (0.0-1.1) Eosinophils # (Auto) 0.1 x10^3/uL (0.0-0.7) 0.1 x10^3/uL (0.0-0.7) Basophils # (Auto) 0.1 x10^3/uL (0.0-0.2) 0.1 x10^3/uL (0.0-0.2) Prothrombin Time 14.3 SEC (11.7-14.0) 15.9 SEC (11.7-14.0) Prothromb Time International Ratio 1.2 (0.8-1.1) 1.3 (0.8-1.1) Activated Partial Thromboplast Time 28 SEC (24-38) 31 SEC (24-38) Sodium Level 138 mmol/L (136-145) 142 mmol/L (136-145) Potassium Level 4.9 mmol/L (3.5-5.1) 4.7 mmol/L (3.5-5.1) Chloride Level 106 mmol/L (98-107) 110 mmol/L (98-107) Carbon Dioxide Level 21 mmol/L (21-32) 22 mmol/L (21-32) Anion Gap 11 (6-14) 10 (6-14) Blood Urea Nitrogen 31 mg/dL (8-26) 27 mg/dL (8-26) Creatinine 1.7 mg/dL (0.7-1.3) 1.6 mg/dL (0.7-1.3) Estimated GFR (Cockcroft-Gault) 39.0 41.8 BUN/Creatinine Ratio 18 (6-20) 17 (6-20) Glucose Level 102 mg/dL (70-99) 92 mg/dL (70-99) Calcium Level 8.0 mg/dL (8.5-10.1) 7.9 mg/dL (8.5-10.1) Magnesium Level 2.5 mg/dL (1.8-2.4) Total Bilirubin 0.4 mg/dL (0.2-1.0) 0.4 mg/dL (0.2-1.0) Aspartate Amino Transf (AST/SGOT) 12 U/L (15-37) 10 U/L (15-37) Alanine Aminotransferase (ALT/SGPT) 14 U/L (16-63) 16 U/L (16-63) Alkaline Phosphatase 46 U/L (46-116) 45 U/L (46-116) Troponin I Quantitative < 0.017 ng/mL (0.000-0.055) 0.046 ng/mL (0.000-0.055) ZD-Iis-K-Type Natriuretic Peptide 3833 pg/mL (0-449) Total Protein 5.9 g/dL (6.4-8.2) 5.4 g/dL (6.4-8.2) Albumin 3.0 g/dL (3.4-5.0) 2.9 g/dL (3.4-5.0) Albumin/Globulin Ratio 1.0 (1.0-1.7) 1.2 (1.0-1.7) Ethyl Alcohol Level < 10 mg/dL (0-10) Urine Opiates Screen Neg (NEG) Urine Methadone Screen Neg (NEG) Urine Barbiturates Neg (NEG) Urine Phencyclidine Screen Neg (NEG) Urine Amphetamine/Methamphetamine Neg (NEG) Urine Benzodiazepines Screen Neg (NEG) Urine Cocaine Screen Neg (NEG) Urine Cannabinoids Screen Neg (NEG) Urine Ethyl Alcohol Neg (NEG) Medications Current Medications Alteplase, Recombinant 8.5 ml @ 510 mls/hr 1X ONCE IV Last administered on 02/02/20at 11:51; Start 02/02/20 at 11:30; Stop 02/02/20 at 11:31; Status DC Alteplase, Recombinant 76.8 ml @ 76.8 mls/hr Q1H IV Last administered on 02/02/20at 11:50; Start 02/02/20 at 11:30; Stop 02/02/20 at 12:29; Status DC Sodium Chloride 50 ml @ 200 mls/hr 1X ONCE IV Last administered on 02/02/20at 11:52; Start 02/02/20 at 11:30; Stop 02/02/20 at 11:44; Status DC Alteplase, Recombinant 0 ml @ 0 mls/hr Q1H IV ; Start 02/02/20 at 11:30; Stop 02/02/20 at 11:31; Status UNV Sodium Chloride 50 ml @ 0 mls/hr 1X ONCE IV ; Start 02/02/20 at 11:30; Stop 02/02/20 at 11:32; Status DC Labetalol HCl (Normodyne Iv Push) 10 mg PRN Q10MIN PRN IVP HYPERTENSION; Start 02/02/20 at 11:30 Nicardipine HCl 50 mg/Sodium Chloride 250 ml @ 25 mls/hr CONT PRN PRN IV HYPERTENSION; Start 02/02/20 at 11:30 Iohexol (Omnipaque 350 Mg/ml) 75 ml 1X ONCE IV Last administered on 02/02/20at 12:30; Start 02/02/20 at 12:30; Stop 02/02/20 at 12:31; Status DC Info (CONTRAST GIVEN -- Rx MONITORING) 1 each PRN DAILY PRN MC SEE COMMENTS; Start 02/02/20 at 12:30; Stop 02/04/20 at 12:29 Albuterol Sulfate (Ventolin Neb Soln) 2.5 mg PRN Q4HRS PRN NEB SHORTNESS OF BREATH Last administered on 02/03/20at 20:39; Start 02/02/20 at 15:45 Ondansetron HCl (Zofran) 4 mg PRN Q4HRS PRN IV NAUSEA/VOMITING; Start 02/02/20 at 18:45 Acetaminophen (Tylenol Supp) 650 mg PRN Q4HRS PRN ID TEMP OVER 100.4F OR MILD PAIN; Start 02/02/20 at 18:45 Bisacodyl (Dulcolax Supp) 10 mg PRN DAILY PRN ID CONSTIPATION; Start 02/02/20 at 18:45 Aspirin (Denny Aspirin) 81 mg DAILYWBKFT PO ; Start 02/03/20 at 15:00; Stop 02/03/20 at 15:40; Status DC Clopidogrel Bisulfate (Plavix) 75 mg DAILYWBKFT PO Last administered on 02/04/20at 09:12; Start 02/03/20 at 15:00 Carvedilol (Coreg) 6.25 mg BIDWMEALS PO Last administered on 02/04/20at 09:12; Start 02/03/20 at 17:00 Simvastatin (Zocor) 20 mg QHS PO ; Start 02/03/20 at 21:00; Stop 02/03/20 at 16:55; Status DC Aspirin (Aspirin Chewable) 81 mg DAILYWBKFT PO Last administered on 02/03/20at 16:26; Start 02/03/20 at 16:00; Stop 02/03/20 at 21:25; Status DC Simvastatin (Zocor) 40 mg QHS PO Last administered on 02/03/20at 21:46; Start 02/03/20 at 21:00 Albuterol Sulfate (Ventolin Neb Soln) 3 mg QID INH ; Start 02/03/20 at 21:00; Stop 02/03/20 at 21:26; Status DC Allopurinol (Zyloprim) 300 mg DAILY PO Last administered on 02/04/20at 09:11; Start 02/04/20 at 09:00 Aspirin (Aspirin Chewable) 81 mg DAILY PO Last administered on 02/04/20at 09:11; Start 02/04/20 at 09:00 Finasteride (Proscar) 5 mg DAILY PO Last administered on 02/04/20at 09:11; Start 02/04/20 at 09:00 Fish Oil (Fish Oil) 1,000 mg DAILY PO Last administered on 02/04/20at 09:11; Start 02/04/20 at 09:00 Non-Formulary Medication (Budesonide/ Formoterol Fumarate (Symbicort 160-4.5 Mcg Inhaler)) 2 puff BID IH ; Start 02/03/20 at 21:00; Status UNV Non-Formulary Medication (Fluticasone/ Salmeterol (Advair 100-50 Diskus)) 1 puff BID IH ; Start 02/03/20 at 21:00; Status UNV Multivitamins (Thera M Plus) 1 tab DAILY PO Last administered on 02/04/20at 09:11; Start 02/04/20 at 09:00 Psyllium Hydrophilic Mucilloid (Metamucil Fiber Packet) 1 pkt DAILY PO Last administered on 02/04/20at 09:12; Start 02/04/20 at 09:00 Albuterol Sulfate (Ventolin Neb Soln) 2.5 mg Q6HRS NEB ; Start 02/04/20 at 00:00; Stop 02/04/20 at 02:55; Status DC Budesonide (Pulmicort) 0.5 mg RTBID NEB Last administered on 02/04/20at 08:25; Start 02/04/20 at 08:00 Albuterol/ Ipratropium (Duoneb) 3 ml RTQID NEB Last administered on 02/04/20at 08:24; Start 02/04/20 at 08:00 Albuterol Sulfate (Ventolin Neb Soln) 2.5 mg PRN Q6HRS PRN NEB WHEEZING; Start 02/04/20 at 03:00 Active Scripts Active Reported Symbicort 160-4.5 Mcg Inhaler (Budesonide/Formoterol Fumarate) 10.2 Gm Hfa.aer.ad 2 Puff IH BID Metamucil (Psyllium Husk) 0.52 Gm Capsule 1 Cap PO DAILY 30 Days Furosemide 40 Mg Tablet 1 Tab PO DAILY 1 Days Allopurinol 300 Mg Tablet 300 Mg PO DAILY Multiple Vitamins (Multivitamin) 1 Each Tablet 1 Tab PO DAILY 30 Days Finasteride 5 Mg Tablet 5 Tab PO DAILY Advair 100-50 Diskus (Fluticasone/Salmeterol) 1 Each Disk.w.dev 1 Puff IH BID Fish Oil 1,000 Mg Softgel ([place]-3 Fatty Acids/Fish Oil) 1 Each Capsule 1 Cap PO DAILY 30 Days Aspirin 81 Mg Tab.chew 81 Mg PO DAILY Proair Hfa (Albuterol Sulfate) 8.5 Gm Hfa.aer.ad 1 Puff INH QID Carvedilol (Carvedilol) 6.25 Mg Tablet 6.25 Mg PO BIDWMEALS Simvastatin 20 Mg Tablet 1 Tab PO QHS Vitals/I & O Vital Sign - Last 24 Hours 02/03/20 02/03/20 02/03/20 02/03/20 15:00 17:58 19:42 20:00 Temp 97.7 98.4 97.7 98.4 Pulse 64 68 62 Resp 20 18 B/P (MAP) 127/59 (81) 156/71 121/60 (80) Pulse Ox 97 95 O2 Delivery Room Air Room Air Room Air 02/03/20 02/03/20 02/04/2020 20:39 22:51 02:50 07:00 Temp 97.7 97.8 98.1 97.7 97.8 98.1 Pulse 68 63 54 Resp 18 18 19 B/P (MAP) 143/66 (91) 126/57 (80) 127/64 (85) Pulse Ox 96 96 100 96 O2 Delivery Room Air Room Air Room Air O2 Flow Rate 2.0 02/04/20 02/04/20 02/04/20 08:27 08:32 09:12 Pulse 63 B/P (MAP) 126/57 Pulse Ox 96 96 O2 Delivery Room Air Room Air Intake and Output 02/03/20 02/03/20 02/04/20 15:00 23:00 07:00 Intake Total 0 ml 580 ml 0 ml Output Total 300 ml Balance 0 ml 280 ml 0 ml Justicifation of Admission Dx: Justifications for Admission: Justification of Admission Dx: Yes Stroke - Ischemic: Stroke-Ischemic SARAH HOOKS MD Feb 04, 2020 09:56
--- NOTE | 2020-02-04 10:03 | PDOC3 ---
Discharge Summary Date of Admission: Feb 02, 2020 Date of Discharge: Feb 04, 2020 Follow-Up: 1-2 days Admitting Diagnosis comment: Chief Complaint Chief Complaint CT Head: No intracranial hemorrhage, mass, hydrocephalus or infarction. No acute ischemic change evident. Orbits, mastoids and bones are unremarkable. IMPRESSION: No acute abnormality CTA neck: Mild plaquing of the ostia the vessels from the aortic arch without stenosis. Tortuosity of the vessels at the thoracic inlet. Left vertebral artery is dominant. No plaquing, dissection, thrombus, stenosis or occlusion the vertebral arteries. Left carotid artery demonstrates partially calcified plaque at the bifurcation contributing to 10 percent stenosis. No dissection, thrombus or occlusion. Right carotid artery demonstrates partially calcified plaque at the bifurcation contributing to 40 percent stenosis at the termination of the common carotid and origin of the internal carotid artery. No dissection, thrombus or occlusion. Cervical disc osteophytes and uncovertebral spurs with spinal canal and neural foraminal stenoses. CT head findings: Mild calcified plaque cavernous carotid arteries without stenosis. No large vessel occlusion. No thrombus, significant stenosis, occlu myles or aneurysm. Patent left posterior indicating artery. Patent anterior to indicating artery. Right anterior cerebral artery A1 segment is hypoplastic. IMPRESSION: 1. No large vessel occlusion. 2. Cervical carotid artery plaquing without significant stenosis. VTE Prophylaxis Ordered VTE Prophylaxis Devices: Yes VTE Pharmacological Prophylaxi: Yes DISCHARGE DX PATIENT INSISTS ON DISCHARGE TODAY, not ideal A/P: acute ischemic stroke Aphasia (Broca's) - has baseline some word finding difficulty, but vastly improved since initial evaluation. Likely prevented early CVA. Neuro consulted Right sided weakness - Resolved s/p tPA CAD s/p x2 MIRLANDE (10+ years) - on plavix. Follows in [place], [place]. Hold antiplatelets after tPA administration. Will reconcile his other meds recent Chronic systolic CHF (EF 40%) - stable currently, seems euvolemic, will obtain [facility] records [id number] Ejection Fraction is 15-20%. There is severe global hypokinesis of the left ventricle. The septal wall is dyskinetic. There is mild concentric left ventricular hypertrophy. Doppler and Color Flow revealed mild aortic regurgitation. There is no significant aortic valvular stenosis. Doppler and Color-flow revealed mild to moderate mitral regurgitation. HTN - PRN nicardipine/labetalol for SBP < 180mmHg HLD - statin BPH - flomax COPD - prn albuterol Renal mass s/p RFA - will f/u with records SUSIE - baseline Cr unknown, plan icu bed FEN - swallow evaluation PPX - TPA given CODE - DNR/DNI Dispo - inpatient ICU NEPHROLOGY CONSULT pending ideal d/c not today but patient insists he must leave to vote in the election d/c planning 40 minutes Justifications for Admission Justifications for Admission Other Justification History of Present Illness History of Present Illness Identification/Chief Complaint Chief Complaint Garbled speech, right arm and leg weakness Source Source: Caregiver, Chart review, Patient History of Present Illness History of Present Illness Mr Hamm is an 79 yo M w/ PMHx COPD, CAD s/p x2 MIRLANDE (10+ years) on plavix, renal mass s/p RFA, chronic systolic CHF (EF 40%), HTN, BPH, and HLD who presents to the ED brought in by EMS as a code stroke activation, last known well around 1015 AM this morning. EMS reports patient was picked up at a nearby liquor store with sudden onset slurred speech and right-sided weakness- witnessed event/pt slumped to right side, not fall or hit his head. EMS reported patient had right-sided flaccidity and aphasia with left lower facial droop. Glucose within normal limits. On no anticoagulants. EKG with NSR 65 bpm, left axis deviation, QTC 465, NC 206, first-degree AV block, left bundle branch block present, T wave inversions V4 through V6, 1, 2 and aVL, no prior EKG for comparison CXR with borderline cardiomegaly no acute abnormalities. CT head with no acute hemorrhage. CT angiogram head and neck with bilateral carotid plaques no thrombi noted. Labs significant for WBC 7.6, Hb 14.5, platelets 252, INR 1.2, PTT 28, calcium 8, NA 138, K4.9, BUN 31, CR 1.7, glucose 102. NIHSS 6 on admit with ED. Contacted by ED for admission and we discussed with neurology, no absolute contraindications to tPA, which was administered with improvement in symptoms to NIHSS of 1 upon my evaluation. Seen in ED bedside with his and [id number] (he and his are from [facility] in town visiting his son and [id number] who are the owners of a liquor store where this incident occurred.) His and [id number] note that at baseline he does have some occasional word-finding difficulty. Admitted to ICU for post-tPA care., now in cvc bed Past Medical History Cardiovascular: CAD, CHF, HTN, Hyperlipidemia Pulmonary: COPD Renal/: Benign prostatic enlarg. Past Surgical History Past Surgical History: Cystoscopy Family History Family History: Cancer, High Cholestrol, Hypertension Social History Smoke: Quit ALCOHOL: occassional Drugs: None Vitals Vitals Vital Signs Date Time Temp Pulse Resp B/P (MAP) Pulse Ox O2 Delivery O2 Flow Rate FiO2 02/04/20 09:12 63 126/57 02/04/20 08:32 96 Room Air 02/04/20 07:00 98.1 19 98.1 02/03/20 20:39 2.0 Physical Exam General: Alert, Oriented X3, Cooperative, No acute distress Heart: Regular rate, Normal S1, Normal S2, Other (2/6 systolic murmur ) Lungs: Clear Abdomen: Soft, No tenderness Extremities: No cyanosis, No edema, Normal pulses Skin: No significant lesion Labs LABS 2D DIMENSIONS Left Atrium(2D) 3.8 (1.6-4.0cm) IVSd 1.4 (0.7-1.1cm) Aortic Root(2D) 2.9 (2.0-3.7cm) LVDd 5.1 (3.9-5.9cm) LVOT Diameter 2.3 (1.8-2.4cm) PWd 1.4 (0.7-1.1cm) LVDs 5.8 (2.5-4.0cm) FS (%) 7.0 % SV 44.3 ml LVEF(%) 15.0 (>50%) Aortic Valve AoV Peak Javid. 143.5cm/s AoV VTI 24.3cm AO Peak GR. 8.2mmHg LVOT Peak Javid. 75.5cm/s AO Mean GR. 4mmHg CHIKA (VMAX) 2.26cm2 CHIKA (VTI) 2.10cm2 AI P 1/2 Time 601ms Mitral Valve MV E Velocity 39.1cm/s MV DECEL TIME 234ms MV A Velocity 79.1cm/s E/A Ratio 0.5 Tricuspid Valve TR P. Velocity 256cm/s RAP ESTIMATE 3mmHg TR Peak Gr. 26mmHg RVSP 29mmHg LEFT VENTRICLE The left ventricle is normal size. There is mild concentric left ventricular hypertrophy. Left ventricle systolic function is severely impaired. The Ejection Fraction is 15-20%. Septal motion consistent with conduction abnormality. There is severe global hypokinesis of the left ventricle. The septal wall is dyskinetic. Transmitral Doppler flow pattern is Grade II-pseudonormal filling dynamics. RIGHT VENTRICLE The right ventricle is normal size. The right ventricular systolic function is normal. ATRIA The left atrium size is normal. The right atrium size is normal. The interatrial septum is intact with no evidence for an atrial septal defect or patent foramen ovale as noted on 2-D or Doppler imaging. AORTIC VALVE The aortic valve is calcified but opens well. Doppler and Color Flow revealed mild aortic regurgitation. There is no significant aortic valvular stenosis. MITRAL VALVE The mitral valve is calcified but opens well. Mitral annular calcification is mild. There is no evidence of mitral valve prolapse. There is no mitral valve stenosis. Doppler and Color-flow revealed mild to moderate mitral regurgitation. TRICUSPID VALVE The tricuspid valve is normal in structure and function. Doppler and Color Flow revealed trace tricuspid regurgitation. The PA pressure was estimated at 29 mmHg. There is no tricuspid valve stenosis. PULMONIC VALVE The pulmonic valve is not well visualized. Doppler and Color Flow revealed no pulmonic valvular regurgitation. There is no pulmonic valvular stenosis. GREAT VESSELS The aortic root is normal in size. The ascending aorta is mildly dilated at 3.7 cm. The IVC is normal in size and collapses >50% with inspiration. PERICARDIAL EFFUSION There is no evidence of significant pericardial effusion. Critical Notification Critical Value: No <Conclusion> The left ventricle is normal size. Left ventricle systolic function is severely impaired. The Ejection Fraction is 15-20%. There is severe global hypokinesis of the left ventricle. The septal wall is dyskinetic. There is mild concentric left ventricular hypertrophy. Doppler and Color Flow revealed mild aortic regurgitation. There is no significant aortic valvular stenosis. Doppler and Color-flow revealed mild to moderate mitral regurgitation. Doppler and Color Flow revealed trace tricuspid regurgitation. The PA pressure was estimated at 29 mmHg. The ascending aorta is mildly dilated at 3.7 cm. Signed by : Lorenza Betancourt MD Electronically Approved : 02/03/2020 16:37:50 DICTATED and SIGNED BY: LORENZA BETANCOURT MD DATE: 02/03/20 1110 Assessment and Plan Assessmemt and Plan Problems Medical Problems: (1) Broca's aphasia Status: Acute (2) CVA (cerebral vascular accident) Status: Acute FINAL DIAGNOSIS Problems Medical Problems: (1) Broca's aphasia Status: Acute (2) CVA (cerebral vascular accident) Status: Acute Brief Hospital Course Mr. Hamm is a 79 old [sex] who presented with [ ] CONDITION AT DISCHARGE: Comment (guarded) Discharge Medications Current Medications Alteplase, Recombinant 8.5 ml @ 510 mls/hr 1X ONCE IV Last administered on 02/02/20at 11:51; Start 02/02/20 at 11:30; Stop 02/02/20 at 11:31; Status DC Alteplase, Recombinant 76.8 ml @ 76.8 mls/hr Q1H IV Last administered on 02/02/20at 11:50; Start 02/02/20 at 11:30; Stop 02/02/20 at 12:29; Status DC Sodium Chloride 50 ml @ 200 mls/hr 1X ONCE IV Last administered on 02/02/20at 11:52; Start 02/02/20 at 11:30; Stop 02/02/20 at 11:44; Status DC Alteplase, Recombinant 0 ml @ 0 mls/hr Q1H IV ; Start 02/02/20 at 11:30; Stop 02/02/20 at 11:31; Status UNV Sodium Chloride 50 ml @ 0 mls/hr 1X ONCE IV ; Start 02/02/20 at 11:30; Stop 02/02/20 at 11:32; Status DC Labetalol HCl (Normodyne Iv Push) 10 mg PRN Q10MIN PRN IVP HYPERTENSION; Start 02/02/20 at 11:30 Nicardipine HCl 50 mg/Sodium Chloride 250 ml @ 25 mls/hr CONT PRN PRN IV HYPERTENSION; Start 02/02/20 at 11:30 Iohexol (Omnipaque 350 Mg/ml) 75 ml 1X ONCE IV Last administered on 02/02/20at 12:30; Start 02/02/20 at 12:30; Stop 02/02/20 at 12:31; Status DC Info (CONTRAST GIVEN -- Rx MONITORING) 1 each PRN DAILY PRN MC SEE COMMENTS; Start 02/02/20 at 12:30; Stop 02/04/20 at 12:29 Albuterol Sulfate (Ventolin Neb Soln) 2.5 mg PRN Q4HRS PRN NEB SHORTNESS OF BREATH Last administered on 02/03/20at 20:39; Start 02/02/20 at 15:45 Ondansetron HCl (Zofran) 4 mg PRN Q4HRS PRN IV NAUSEA/VOMITING; Start 02/02/20 at 18:45 Acetaminophen (Tylenol Supp) 650 mg PRN Q4HRS PRN NC TEMP OVER 100.4F OR MILD PAIN; Start 02/02/20 at 18:45 Bisacodyl (Dulcolax Supp) 10 mg PRN DAILY PRN NC CONSTIPATION; Start 02/02/20 at 18:45 Aspirin (Denny Aspirin) 81 mg DAILYWBKFT PO ; Start 02/03/20 at 15:00; Stop 02/03/20 at 15:40; Status DC Clopidogrel Bisulfate (Plavix) 75 mg DAILYWBKFT PO Last administered on 02/04/20at 09:12; Start 02/03/20 at 15:00 Carvedilol (Coreg) 6.25 mg BIDWMEALS PO Last administered on 02/04/20at 09:12; Start 02/03/20 at 17:00 Simvastatin (Zocor) 20 mg QHS PO ; Start 02/03/20 at 21:00; Stop 02/03/20 at 16:55; Status DC Aspirin (Aspirin Chewable) 81 mg DAILYWBKFT PO Last administered on 02/03/20at 16:26; Start 02/03/20 at 16:00; Stop 02/03/20 at 21:25; Status DC Simvastatin (Zocor) 40 mg QHS PO Last administered on 02/03/20at 21:46; Start 02/03/20 at 21:00 Albuterol Sulfate (Ventolin Neb Soln) 3 mg QID INH ; Start 02/03/20 at 21:00; Stop 02/03/20 at 21:26; Status DC Allopurinol (Zyloprim) 300 mg DAILY PO Last administered on 02/04/20at 09:11; Start 02/04/20 at 09:00 Aspirin (Aspirin Chewable) 81 mg DAILY PO Last administered on 02/04/20at 09:11; Start 02/04/20 at 09:00 Finasteride (Proscar) 5 mg DAILY PO Last administered on 02/04/20at 09:11; Start 02/04/20 at 09:00 Fish Oil (Fish Oil) 1,000 mg DAILY PO Last administered on 02/04/20at 09:11; Start 02/04/20 at 09:00 Non-Formulary Medication (Budesonide/ Formoterol Fumarate (Symbicort 160-4.5 Mcg Inhaler)) 2 puff BID IH ; Start 02/03/20 at 21:00; Status UNV Non-Formulary Medication (Fluticasone/ Salmeterol (Advair 100-50 Diskus)) 1 puff BID IH ; Start 02/03/20 at 21:00; Status UNV Multivitamins (Thera M Plus) 1 tab DAILY PO Last administered on 02/04/20at 09:11; Start 02/04/20 at 09:00 Psyllium Hydrophilic Mucilloid (Metamucil Fiber Packet) 1 pkt DAILY PO Last administered on 02/04/20at 09:12; Start 02/04/20 at 09:00 Albuterol Sulfate (Ventolin Neb Soln) 2.5 mg Q6HRS NEB ; Start 02/04/20 at 00:00; Stop 02/04/20 at 02:55; Status DC Budesonide (Pulmicort) 0.5 mg RTBID NEB Last administered on 02/04/20at 08:25; Start 02/04/20 at 08:00 Albuterol/ Ipratropium (Duoneb) 3 ml RTQID NEB Last administered on 02/04/20at 08:24; Start 02/04/20 at 08:00 Albuterol Sulfate (Ventolin Neb Soln) 2.5 mg PRN Q6HRS PRN NEB WHEEZING; Start 02/04/20 at 03:00 Active Scripts Active Reported Symbicort 160-4.5 Mcg Inhaler (Budesonide/Formoterol Fumarate) 10.2 Gm Hfa.aer.ad 2 Puff IH BID Metamucil (Psyllium Husk) 0.52 Gm Capsule 1 Cap PO DAILY 30 Days Furosemide 40 Mg Tablet 1 Tab PO DAILY 1 Days Allopurinol 300 Mg Tablet 300 Mg PO DAILY Multiple Vitamins (Multivitamin) 1 Each Tablet 1 Tab PO DAILY 30 Days Finasteride 5 Mg Tablet 5 Tab PO DAILY Advair 100-50 Diskus (Fluticasone/Salmeterol) 1 Each Disk.w.dev 1 Puff IH BID Fish Oil 1,000 Mg Softgel ([place]-3 Fatty Acids/Fish Oil) 1 Each Capsule 1 Cap PO DAILY 30 Days Aspirin 81 Mg Tab.chew 81 Mg PO DAILY Proair Hfa (Albuterol Sulfate) 8.5 Gm Hfa.aer.ad 1 Puff INH QID Carvedilol (Carvedilol) 6.25 Mg Tablet 6.25 Mg PO BIDWMEALS Simvastatin 20 Mg Tablet 1 Tab PO QHS Vital Signs Vital Signs Date Time Temp Pulse Resp B/P (MAP) Pulse Ox O2 Delivery O2 Flow Rate FiO2 02/04/20 09:12 63 126/57 02/04/20 08:32 96 Room Air 02/04/20 07:00 98.1 19 98.1 02/03/20 20:39 2.0 Labs Laboratory Tests Test 02/02/20 11:07 02/02/20 13:40 02/03/20 04:56 White Blood Count 7.6 x10^3/uL (4.0-11.0) 7.1 x10^3/uL (4.0-11.0) Red Blood Count 4.39 x10^6/uL (4.30-5.70) 4.16 x10^6/uL (4.30-5.70) Hemoglobin 14.5 g/dL (13.0-17.5) 13.6 g/dL (13.0-17.5) Hematocrit 43.0 % (39.0-53.0) 40.7 % (39.0-53.0) Mean Corpuscular Volume 98 fL (79-100) 98 fL (79-100) Mean Corpuscular Hemoglobin 33 pg (25-35) 33 pg (25-35) Mean Corpuscular Hemoglobin Concent 34 g/dL (31-37) 34 g/dL (31-37) Red Cell Distribution Width 14.0 % (11.5-14.5) 13.6 % (11.5-14.5) Platelet Count 252 x10^3/uL (140-400) 224 x10^3/uL (140-400) Neutrophils (%) (Auto) 62 % (31-73) 62 % (31-73) Lymphocytes (%) (Auto) 26 % (24-48) 25 % (24-48) Monocytes (%) (Auto) 8 % (0-9) 10 % (0-9) Eosinophils (%) (Auto) 2 % (0-3) 2 % (0-3) Basophils (%) (Auto) 1 % (0-3) 1 % (0-3) Neutrophils # (Auto) 4.7 x10^3/uL (1.8-7.7) 4.4 x10^3/uL (1.8-7.7) Lymphocytes # (Auto) 2.0 x10^3/uL (1.0-4.8) 1.8 x10^3/uL (1.0-4.8) Monocytes # (Auto) 0.6 x10^3/uL (0.0-1.1) 0.7 x10^3/uL (0.0-1.1) Eosinophils # (Auto) 0.1 x10^3/uL (0.0-0.7) 0.1 x10^3/uL (0.0-0.7) Basophils # (Auto) 0.1 x10^3/uL (0.0-0.2) 0.1 x10^3/uL (0.0-0.2) Prothrombin Time 14.3 SEC (11.7-14.0) 15.9 SEC (11.7-14.0) Prothromb Time International Ratio 1.2 (0.8-1.1) 1.3 (0.8-1.1) Activated Partial Thromboplast Time 28 SEC (24-38) 31 SEC (24-38) Sodium Level 138 mmol/L (136-145) 142 mmol/L (136-145) Potassium Level 4.9 mmol/L (3.5-5.1) 4.7 mmol/L (3.5-5.1) Chloride Level 106 mmol/L (98-107) 110 mmol/L (98-107) Carbon Dioxide Level 21 mmol/L (21-32) 22 mmol/L (21-32) Anion Gap 11 (6-14) 10 (6-14) Blood Urea Nitrogen 31 mg/dL (8-26) 27 mg/dL (8-26) Creatinine 1.7 mg/dL (0.7-1.3) 1.6 mg/dL (0.7-1.3) Estimated GFR (Cockcroft-Gault) 39.0 41.8 BUN/Creatinine Ratio 18 (6-20) 17 (6-20) Glucose Level 102 mg/dL (70-99) 92 mg/dL (70-99) Calcium Level 8.0 mg/dL (8.5-10.1) 7.9 mg/dL (8.5-10.1) Magnesium Level 2.5 mg/dL (1.8-2.4) Total Bilirubin 0.4 mg/dL (0.2-1.0) 0.4 mg/dL (0.2-1.0) Aspartate Amino Transf (AST/SGOT) 12 U/L (15-37) 10 U/L (15-37) Alanine Aminotransferase (ALT/SGPT) 14 U/L (16-63) 16 U/L (16-63) Alkaline Phosphatase 46 U/L (46-116) 45 U/L (46-116) Troponin I Quantitative < 0.017 ng/mL (0.000-0.055) 0.046 ng/mL (0.000-0.055) GY-Gll-I-Type Natriuretic Peptide 3833 pg/mL (0-449) Total Protein 5.9 g/dL (6.4-8.2) 5.4 g/dL (6.4-8.2) Albumin 3.0 g/dL (3.4-5.0) 2.9 g/dL (3.4-5.0) Albumin/Globulin Ratio 1.0 (1.0-1.7) 1.2 (1.0-1.7) Ethyl Alcohol Level < 10 mg/dL (0-10) Urine Opiates Screen Neg (NEG) Urine Methadone Screen Neg (NEG) Urine Barbiturates Neg (NEG) Urine Phencyclidine Screen Neg (NEG) Urine Amphetamine/Methamphetamine Neg (NEG) Urine Benzodiazepines Screen Neg (NEG) Urine Cocaine Screen Neg (NEG) Urine Cannabinoids Screen Neg (NEG) Urine Ethyl Alcohol Neg (NEG) Allergies Allergies Coded Allergies Type Severity Reaction Last Updated Verified No Known Drug Allergies 02/02/20 No Disposition/Orders: D/C to Home Patient Instructions see pcp and strapper and buffer taurus this week, this d/c not under ideal conditions and not well advised Justicifation of Admission Dx: Justifications for Admission: Justification of Admission Dx: Yes Stroke - Ischemic: Stroke-Ischemic SARAH HOOKS MD Feb 04, 2020 10:03
[2020-02-04] MEDS ORDERED: CLOP75TA PO (10:06)
[2020-02-04] MEDS ORDERED: SIMV20TA18 PO (10:06)
--- NOTE | 2020-02-04 10:28 | PDOC2 ---
CONSULT Date of Consult Date of Consult DATE: 02/04/20 TIME: 10:27 Reason for Consult Reason for Consult: SUSIE Identification/Chief Complaint Chief Complaint " I was to be dced home by 10 am , I have to go and vote " Source Source: Chart review, Patient History of Present Illness Reason for Visit: Mr Hamm is an 79 yo CM w/ PMHx COPD, CAD s/p x2 MIRLANDE (10+ years) on plavix, renal mass s/p RFA, chronic systolic CHF (EF 40%), HTN, BPH, who presents to the ED brought in by EMS as a code stroke activation,ON 02/01 Per EMS patient was picked up at a nearby liquor store with sudden onset slurred speech and right-sided weakness- witnessed event/pt slumped to right side, not fall or hit his head. EMS reported patient had right-sided flaccidity and aphasia with left lower facial droop. Glucose within normal limits. . tPA was administered with improvement in symptoms CXR with borderline cardiomegaly no acute abnormalities. CT head with no acute hemorrhage. CT angiogram head and neck with bilateral carotid plaques no thrombi noted. Currently his and [id number] (he and his are [facility] [place] son and [id number] who are the owners of a liquor store where this incident occurred.) are at bedside . Patient denies any concerns , No CP or SOB. No N/V/D. Denies any urinary complaints . and Pt think that he has Dx of CKD and was seen by Renal in [facility] or [place] in the past. Also followed at [facility] in [place] He denies use of NSAID's . No Hx of renal calculus . He is in a anderson to be dced - states he has to go and vote Past Medical History Cardiovascular: CAD, CHF, HTN, Hyperlipidemia Pulmonary: Asthma, COPD Renal/: Benign prostatic enlarg. Past Surgical History Past Surgical History: Other (PCI/stent ) Family History Family History: Heart Disease, High Cholestrol, Hypertension Social History Quit ALCOHOL: occassional Drugs: None Lives: with Family Current Problem List Problem List Problems Medical Problems: (1) Broca's aphasia Status: Acute (2) CVA (cerebral vascular accident) Status: Acute Current Medications Current Medications Current Medications Alteplase, Recombinant 8.5 ml @ 510 mls/hr 1X ONCE IV Last administered on 02/02/20at 11:51; Start 02/02/20 at 11:30; Stop 02/02/20 at 11:31; Status DC Alteplase, Recombinant 76.8 ml @ 76.8 mls/hr Q1H IV Last administered on 02/02/20at 11:50; Start 02/02/20 at 11:30; Stop 02/02/20 at 12:29; Status DC Sodium Chloride 50 ml @ 200 mls/hr 1X ONCE IV Last administered on 02/02/20at 11:52; Start 02/02/20 at 11:30; Stop 02/02/20 at 11:44; Status DC Alteplase, Recombinant 0 ml @ 0 mls/hr Q1H IV ; Start 02/02/20 at 11:30; Stop 02/02/20 at 11:31; Status UNV Sodium Chloride 50 ml @ 0 mls/hr 1X ONCE IV ; Start 02/02/20 at 11:30; Stop 02/02/20 at 11:32; Status DC Labetalol HCl (Normodyne Iv Push) 10 mg PRN Q10MIN PRN IVP HYPERTENSION; Start 02/02/20 at 11:30 Nicardipine HCl 50 mg/Sodium Chloride 250 ml @ 25 mls/hr CONT PRN PRN IV HYPERTENSION; Start 02/02/20 at 11:30 Iohexol (Omnipaque 350 Mg/ml) 75 ml 1X ONCE IV Last administered on 02/02/20at 12:30; Start 02/02/20 at 12:30; Stop 02/02/20 at 12:31; Status DC Info (CONTRAST GIVEN -- Rx MONITORING) 1 each PRN DAILY PRN MC SEE COMMENTS; Start 02/02/20 at 12:30; Stop 02/04/20 at 12:29 Albuterol Sulfate (Ventolin Neb Soln) 2.5 mg PRN Q4HRS PRN NEB SHORTNESS OF BREATH Last administered on 02/03/20at 20:39; Start 02/02/20 at 15:45 Ondansetron HCl (Zofran) 4 mg PRN Q4HRS PRN IV NAUSEA/VOMITING; Start 02/02/20 at 18:45 Acetaminophen (Tylenol Supp) 650 mg PRN Q4HRS PRN AL TEMP OVER 100.4F OR MILD PAIN; Start 02/02/20 at 18:45 Bisacodyl (Dulcolax Supp) 10 mg PRN DAILY PRN AL CONSTIPATION; Start 02/02/20 at 18:45 Aspirin (Denny Aspirin) 81 mg DAILYWBKFT PO ; Start 02/03/20 at 15:00; Stop 02/03/20 at 15:40; Status DC Clopidogrel Bisulfate (Plavix) 75 mg DAILYWBKFT PO Last administered on 02/04/20at 09:12; Start 02/03/20 at 15:00 Carvedilol (Coreg) 6.25 mg BIDWMEALS PO Last administered on 02/04/20at 09:12; Start 02/03/20 at 17:00 Simvastatin (Zocor) 20 mg QHS PO ; Start 02/03/20 at 21:00; Stop 02/03/20 at 16:55; Status DC Aspirin (Aspirin Chewable) 81 mg DAILYWBKFT PO Last administered on 02/03/20at 16:26; Start 02/03/20 at 16:00; Stop 02/03/20 at 21:25; Status DC Simvastatin (Zocor) 40 mg QHS PO Last administered on 02/03/20at 21:46; Start 02/03/20 at 21:00 Albuterol Sulfate (Ventolin Neb Soln) 3 mg QID INH ; Start 02/03/20 at 21:00; Stop 02/03/20 at 21:26; Status DC Allopurinol (Zyloprim) 300 mg DAILY PO Last administered on 02/04/20at 09:11; Start 02/04/20 at 09:00 Aspirin (Aspirin Chewable) 81 mg DAILY PO Last administered on 02/04/20at 09:11; Start 02/04/20 at 09:00 Finasteride (Proscar) 5 mg DAILY PO Last administered on 02/04/20at 09:11; Start 02/04/20 at 09:00 Fish Oil (Fish Oil) 1,000 mg DAILY PO Last administered on 02/04/20at 09:11; Start 02/04/20 at 09:00 Non-Formulary Medication (Budesonide/ Formoterol Fumarate (Symbicort 160-4.5 Mcg Inhaler)) 2 puff BID IH ; Start 02/03/20 at 21:00; Status UNV Non-Formulary Medication (Fluticasone/ Salmeterol (Advair 100-50 Diskus)) 1 puff BID IH ; Start 02/03/20 at 21:00; Status UNV Multivitamins (Thera M Plus) 1 tab DAILY PO Last administered on 02/04/20at 09: 11; Start 02/04/20 at 09:00 Psyllium Hydrophilic Mucilloid (Metamucil Fiber Packet) 1 pkt DAILY PO Last administered on 02/04/20at 09:12; Start 02/04/20 at 09:00 Albuterol Sulfate (Ventolin Neb Soln) 2.5 mg Q6HRS NEB ; Start 02/04/20 at 00:00; Stop 02/04/20 at 02:55; Status DC Budesonide (Pulmicort) 0.5 mg RTBID NEB Last administered on 02/04/20at 08:25; Start 02/04/20 at 08:00 Albuterol/ Ipratropium (Duoneb) 3 ml RTQID NEB Last administered on 02/04/20at 08:24; Start 02/04/20 at 08:00 Albuterol Sulfate (Ventolin Neb Soln) 2.5 mg PRN Q6HRS PRN NEB WHEEZING; Start 02/04/20 at 03:00 Active Scripts Active Simvastatin 20 Mg Tablet 40 Mg PO QHS 30 Days Clopidogrel (Clopidogrel Bisulfate) 75 Mg Tablet 75 Mg PO DAILYWBKFT 30 Days Reported Symbicort 160-4.5 Mcg Inhaler (Budesonide/Formoterol Fumarate) 10.2 Gm Hfa.aer.ad 2 Puff IH BID Metamucil (Psyllium Husk) 0.52 Gm Capsule 1 Cap PO DAILY 30 Days Furosemide 40 Mg Tablet 1 Tab PO DAILY 1 Days Allopurinol 300 Mg Tablet 300 Mg PO DAILY Multiple Vitamins (Multivitamin) 1 Each Tablet 1 Tab PO DAILY 30 Days Finasteride 5 Mg Tablet 5 Tab PO DAILY Advair 100-50 Diskus (Fluticasone/Salmeterol) 1 Each Disk.w.dev 1 Puff IH BID Fish Oil 1,000 Mg Softgel (Parker-3 Fatty Acids/Fish Oil) 1 Each Capsule 1 Cap PO DAILY 30 Days Aspirin 81 Mg Tab.chew 81 Mg PO DAILY Proair Hfa (Albuterol Sulfate) 8.5 Gm Hfa.aer.ad 1 Puff INH QID Carvedilol (Carvedilol) 6.25 Mg Tablet 6.25 Mg PO BIDWMEALS Allergies Allergies: Coded Allergies: No Known Drug Allergies (Unverified , 02/02/20) ROS Review of System As per HPI, rest of the ros is negative Physical Exam Physical Exam General: , No acute distress HEENT: Atraumatic, Mucous membr. moist/pink Neck Supple Lungs: Clear to auscultation Heart: Regular rate, 2/6 systolic murmur Abdomen: Soft, No tenderness Extremities: No edema, Normal pulses Skin: No significant lesion Neuro: Normal speech, Sensation intact Psych/Mental Status: Mental status NL, Mood NL No castelan Vital Signs Vital Signs Date Time Temp Pulse Resp B/P (MAP) Pulse Ox O2 Delivery O2 Flow Rate FiO2 02/04/20 09:12 63 126/57 02/04/20 08:32 96 Room Air 02/04/20 07:00 98.1 19 98.1 02/03/20 20:39 2.0 Assessment & Plan SUSIE - Vasomotor, baseline unknown No UA or imaging done , Received IV contrast on 02/01 Cr stable , E-Lytes stable , Further marie not ordered by me as he is getting dced Dw Pt and family at bedside to follow with Renal as OP , avoid nephrotoxins Renal mass s/p RFA Aphasia (Broca's) - has baseline some word finding difficulty, but improved after tPA Right sided weakness - Resolved s/p tPA CAD s/p x2 MIRLANDE (10+ years) Follows in [place], [place]. Chronic systolic CHF (EF 40%) - stable HTN BP stable BPH - flomax COPD Labs Labs Laboratory Tests Test 02/02/20 11:07 02/02/20 13:40 02/03/20 04:56 White Blood Count 7.6 x10^3/uL (4.0-11.0) 7.1 x10^3/uL (4.0-11.0) Red Blood Count 4.39 x10^6/uL (4.30-5.70) 4.16 x10^6/uL (4.30-5.70) Hemoglobin 14.5 g/dL (13.0-17.5) 13.6 g/dL (13.0-17.5) Hematocrit 43.0 % (39.0-53.0) 40.7 % (39.0-53.0) Mean Corpuscular Volume 98 fL (79-100) 98 fL (79-100) Mean Corpuscular Hemoglobin 33 pg (25-35) 33 pg (25-35) Mean Corpuscular Hemoglobin Concent 34 g/dL (31-37) 34 g/dL (31-37) Red Cell Distribution Width 14.0 % (11.5-14.5) 13.6 % (11.5-14.5) Platelet Count 252 x10^3/uL (140-400) 224 x10^3/uL (140-400) Neutrophils (%) (Auto) 62 % (31-73) 62 % (31-73) Lymphocytes (%) (Auto) 26 % (24-48) 25 % (24-48) Monocytes (%) (Auto) 8 % (0-9) 10 % (0-9) Eosinophils (%) (Auto) 2 % (0-3) 2 % (0-3) Basophils (%) (Auto) 1 % (0-3) 1 % (0-3) Neutrophils # (Auto) 4.7 x10^3/uL (1.8-7.7) 4.4 x10^3/uL (1.8-7.7) Lymphocytes # (Auto) 2.0 x10^3/uL (1.0-4.8) 1.8 x10^3/uL (1.0-4.8) Monocytes # (Auto) 0.6 x10^3/uL (0.0-1.1) 0.7 x10^3/uL (0.0-1.1) Eosinophils # (Auto) 0.1 x10^3/uL (0.0-0.7) 0.1 x10^3/uL (0.0-0.7) Basophils # (Auto) 0.1 x10^3/uL (0.0-0.2) 0.1 x10^3/uL (0.0-0.2) Prothrombin Time 14.3 SEC (11.7-14.0) 15.9 SEC (11.7-14.0) Prothromb Time International Ratio 1.2 (0.8-1.1) 1.3 (0.8-1.1) Activated Partial Thromboplast Time 28 SEC (24-38) 31 SEC (24-38) Sodium Level 138 mmol/L (136-145) 142 mmol/L (136-145) Potassium Level 4.9 mmol/L (3.5-5.1) 4.7 mmol/L (3.5-5.1) Chloride Level 106 mmol/L (98-107) 110 mmol/L (98-107) Carbon Dioxide Level 21 mmol/L (21-32) 22 mmol/L (21-32) Anion Gap 11 (6-14) 10 (6-14) Blood Urea Nitrogen 31 mg/dL (8-26) 27 mg/dL (8-26) Creatinine 1.7 mg/dL (0.7-1.3) 1.6 mg/dL (0.7-1.3) Estimated GFR (Cockcroft-Gault) 39.0 41.8 BUN/Creatinine Ratio 18 (6-20) 17 (6-20) Glucose Level 102 mg/dL (70-99) 92 mg/dL (70-99) Calcium Level 8.0 mg/dL (8.5-10.1) 7.9 mg/dL (8.5-10.1) Magnesium Level 2.5 mg/dL (1.8-2.4) Total Bilirubin 0.4 mg/dL (0.2-1.0) 0.4 mg/dL (0.2-1.0) Aspartate Amino Transf (AST/SGOT) 12 U/L (15-37) 10 U/L (15-37) Alanine Aminotransferase (ALT/SGPT) 14 U/L (16-63) 16 U/L (16-63) Alkaline Phosphatase 46 U/L (46-116) 45 U/L (46-116) Troponin I Quantitative < 0.017 ng/mL (0.000-0.055) 0.046 ng/mL (0.000-0.055) UW-Ues-I-Type Natriuretic Peptide 3833 pg/mL (0-449) Total Protein 5.9 g/dL (6.4-8.2) 5.4 g/dL (6.4-8.2) Albumin 3.0 g/dL (3.4-5.0) 2.9 g/dL (3.4-5.0) Albumin/Globulin Ratio 1.0 (1.0-1.7) 1.2 (1.0-1.7) Ethyl Alcohol Level < 10 mg/dL (0-10) Urine Opiates Screen Neg (NEG) Urine Methadone Screen Neg (NEG) Urine Barbiturates Neg (NEG) Urine Phencyclidine Screen Neg (NEG) Urine Amphetamine/Methamphetamine Neg (NEG) Urine Benzodiazepines Screen Neg (NEG) Urine Cocaine Screen Neg (NEG) Urine Cannabinoids Screen Neg (NEG) Urine Ethyl Alcohol Neg (NEG) Review All relevant outside records, renal labs, imaging studies, telemetry/EKG's were reviewed. Images Images CXR: Borderline cardiomegaly. Mediastinum unremarkable. No pneumothorax, pulmonary opacities or pleural effusions. Mild discoid atelectasis lung bases. Bones unremarkable. IMPRESSION: No acute process. Mild bibasilar atelectasis. CT Head: No intracranial hemorrhage, mass, hydrocephalus or infarction. No acute ischemic change evident. Orbits, mastoids and bones are unremarkable. IMPRESSION: No acute abnormality CTA neck: Mild plaquing of the ostia the vessels from the aortic arch without stenosis. Tortuosity of the vessels at the thoracic inlet. Left vertebral artery is dominant. No plaquing, dissection, thrombus, stenosis or occlusion the vertebral arteries. Left carotid artery demonstrates partially calcified plaque at the bifurcation contributing to 10 percent stenosis. No dissection, thrombus or occlusion. Right carotid artery demonstrates partially calcified plaque at the bifurcation contributing to 40 percent stenosis at the termination of the common carotid and origin of the internal carotid artery. No dissection, thrombus or occlusion. Cervical disc osteophytes and uncovertebral spurs with spinal canal and neural foraminal stenoses. CT head findings: Mild calcified plaque cavernous carotid arteries without stenosis. No large vessel occlusion. No thrombus, significant stenosis, occlusion or aneurysm. Patent left posterior indicating artery. Patent anterior to indicating artery. Right anterior cerebral artery A1 segment is hypoplastic. IMPRESSION: 1. No large vessel occlusion. 2. Cervical carotid artery plaquing without significant stenosis. MICHAEL CYR MD Feb 04, 2020 10:27
[2020-02-04] MEDS ORDERED: APIX5TAB PO (10:36)
--- NOTE | 2020-02-04 10:38 | DISCH ---
DISCHARGE INSTRUCTIONS Condition on Discharge Condition on Discharge: Guarded Activity After Discharge Activity Instructions for Disc: Activity as tolerated, Avoid high altitudes Lifting Instructions after Dis: No heavy lifting, No pulling or pushing, Do not lift >10 pounds Driving Instructions after Dis: Do not drive Diet after Discharge Diet after Discharge: Cardiac Diet Texture: Dysphagia Advanced Checks after Discharge Checks after discharge: Check blood press - daily Contacting the DR. after DC Call your doctor for: If your condition worsens Treatment/Equipment after DC Adaptive Equipment Issued: None Warfarin Follow-Up Warfarin Follow UP: SEE CAR WASH ATTENDANT AND PCP THIS WEEK, SARAH FAIRBANKS MD Feb 04, 2020 10:38
[2020-02-04] MEDS ORDERED: APIX2.5T PO (10:51)
--- NOTE | 2020-02-04 10:59 | PDOC ---
LAURA CHOE WEIGHT REDUCING TECHNICIAN 02/04/20 1059: CARDIO Progress Notes Date and Time Date of Service 02/04/2020 Time of Evaluation 1030 Subjective Subjective: No Chest Pain, No shortness of breath, No Palpitations Vitals Vitals Vital Signs Date Time Temp Pulse Resp B/P (MAP) Pulse Ox O2 Delivery O2 Flow Rate FiO2 02/04/20 09:12 63 126/57 02/04/20 08:32 96 Room Air 02/04/20 07:00 98.1 19 98.1 02/03/20 20:39 2.0 Weight Weight [ ] Input and Output Intake and Output Intake and Output 02/04/20 07:00 Intake Total 580 ml Output Total 300 ml Balance 280 ml Intake Oral 580 ml Output Urine Total 300 ml # Bowel Movements 1 Physical Exam HEENT: Neck Supple W Full Motion Chest: Symmetric LUNGS: Clear to Auscultation Heart: S1S2, RRR (SR) Abdomen: Soft N/T Extremities: No Calf Tenderness Neurology: alert, oriented, follow commands Assessment Assessment 1. Acute CVA s/p TPA. symptoms resolved suspect cardioembolic given his severe CM with dyskinetic septal wall 2. CAD s/p PCI/MIRLANDE 10 years ago. Follow[address] with Dr. Haney with [facility] in [place], [place]. NO cardiac symptoms. 3. Chronic systolic CHF; appears compensated EF at 15-20 possibly 40% from previous 4. Presumed ICM 5. Hypertension; controlled 6. Hyperlipidemia 7. COPD; clinically compensated 8. SUSIE vs CKD: Cr at 1.7 Recommendations 1. Discussed with neurology, and ok to start on eliquis. Continue plavix. 2. Statin therapy 3. outpt butt trimmer has been informed. pt wants to leave to vote as he lives down close to [facility]. Discussed significantly with and pt and daughter and further testings to be done as an outpt per his regular butt trimmer. 4. Clinically he is compensated cardiac cisneros and will need outpt ETHAN, MCOT and also further ischemic workup as an outpt through his primary butt trimmer. Justicifation of Admission Dx: Justifications for Admission: Justification of Admission Dx: Yes Stroke - Ischemic: Stroke-Ischemic JAMESON SAMUEL MD 02/04/20 9362: CARDIO Progress Notes Plan Plan Patient seen and examined. Agree with above nurse practitioner note. Case discussed with primary butt trimmer Dr. Morley in [facility]. I notified the primary butt trimmer that the patient has severe LV dysfunction and that he would merit discussions for ICD and possible ETHAN on an outpatient basis along with evaluation for atrial fibrillation. We will plan for discharge on Plavix and Eliquis if okay with the neurology service. LAURA CHOE APRN Feb 04, 2020 10:59 JAMESON SAMUEL MD Feb 04, 2020 18:47
[2020-02-04 11:00] VITALS: BP 118/60
[2020-02-04 12:07] LABS: CHOLESTEROL/HDL RATIO 3.2
--- NOTE | 2020-02-04 13:13 | NUR ---
Discharge Note: CARLOTA BALTAZAR [address] Discharge instructions and discharge home medications reviewed with Patient, spouse, daugther, son, and daughter in law. Copy given. All questions have been answered and understanding verbalized. The following instructions and handouts were given: Stroke packet, eliquis, plavix, tPa administration with time and date given Pt to follow up with primary physician, ski lift attendant, and director of cardiology service line in [facility]. Track Hoe Operator, Dr. Morley, aware of current situation and agreeable to med changes. Instructs the patient to follow up as soon as possible once pt has returned home. Discharge NIH scale is zero. Prescriptions sent from Dr. Cloud to [facility] in [place], [place].
== END 2020-02-04 12:00 | disposition home or self-care (01) | DRG 62 ==
LOC: ER 10:49 → ED HOLD 12:22 → 2 SOUTH 14:19
PROVIDERS: ADMIT Internal Medicine; ATTEND Internal Medicine
DX: I63.9 Cerebral infarction, unspecified (principal); G81.91 Hemiplegia, unspecified affecting right dominant side; I50.22 Chronic systolic (congestive) heart failure; N17.9 Acute kidney failure, unspecified; Z66 Do not resuscitate; E78.5 Hyperlipidemia, unspecified; I25.10 Atherosclerotic heart disease of native coronary artery without angina pectoris; I25.5 Ischemic cardiomyopathy; I34.0 Nonrheumatic mitral (valve) insufficiency; I44.0 Atrioventricular block, first degree; I44.7 Left bundle-branch block, unspecified; J44.9 Chronic obstructive pulmonary disease, unspecified; M25.78 Osteophyte, vertebrae; N28.89 Other specified disorders of kidney and ureter; N40.0 Benign prostatic hyperplasia without lower urinary tract symptoms; R29.706 NIHSS score 6; R29.810 Facial weakness; R47.01 Aphasia; I11.0 Hypertensive heart disease with heart failure; R47.81 Slurred speech; Z79.82 Long term (current) use of aspirin; Z82.49 Family history of ischemic heart disease and other diseases of the circulatory system; Z87.891 Personal history of nicotine dependence; Z95.5 Presence of coronary angioplasty implant and graft
CPT/HCPCS: 36415; 37195; 70450; 70496; 70498; 70551; 71045; 80053; 80061; 80307; 83735; 83880; 84484; 85025; 85610; 85730; 93005; 93306; 93880; 94640; 94760; 96360; G0480; J2997; Q9967; 97535-GO; 99285-25; G0378; J7613; J7626